=== PATIENT | female | born 1990 | race Caucasian/White ===

== ENCOUNTER 2016-12-26 11:44 | Outpatient (CLI) | payer OTHER ==
[~2016-12-26 11:44] MED LIST: MIRENA; NITR-58 PO
--- NOTE | 2016-12-26 13:00 | RADRPT ---
PROCEDURE: Limited OB ultrasound for SAGAR. CLINICAL INDICATION: Decreased movement TECHNIQUE: Sonographic evaluation to assess the amniotic fluid volume was performed. Transabdomin al imaging of the gravid uterus was performed. COMPARISON: None available FINDINGS: Single live intrauterine with cardiac activity is identified. The heart rate i s 137 bpm. Maximum vertical pocket of amniotic fluid equals 4.8 cm, within normal limits. The plac enta is posterior, grade 1. The lie is cephalic. IMPRESSION: 1. Maximum vertical pocket of amniotic fluid equals 4.8 cm, within normal limits . RPTAT: KK .Kavon Brown MD, MD Date Time Electronically viewed and signed by .Kavon Brown MD, on 12/26/2016 12:59 .B/
[2016-12-26] MEDS ORDERED: AMPICILLIN 2 GM/NS (PMX) 0 ML ONE (13:17)
[2016-12-26] MEDS ORDERED: PRENAT PO (13:18)
[2016-12-26] MEDS ORDERED: FER325 PO (13:18)
--- NOTE | 2016-12-26 13:47 | PN ---
Triage Information Date/Time Reason for visit: DFM Weeks of Gestation 21+ /Para 1/0 Diabetes: none Hypertention: none Objective Heart Rate: 140's Contractions: None Assessment/Plan patient feels the baby moves, Discharged with precautions OZZY STAHL M.D. Dec 26, 2016 13:47
--- NOTE | 2016-12-26 13:57 | TRIAGE ---
OB Triage Datetime Report Generated by CPN: 12/26/2016 13:57 Datetime: 12/26/2016 13:00 Stage of : OB Triage Maternal Assessment Level of Consciousness: Fully Conscious Labor Evaluation Frequency: NONE Monitor Mode: External Resting Tone [place]: Relaxed Heart Rate Monitor Mode: Doppler (Annotations: FHT'S DOPPLED IN THE 140'S.) Pain Assessment Pain Scale: 0 Pain Goal: 3 Vaginal Exam Membrane Status: Intact Vaginal Bleeding: None Datetime: 12/26/2016 12:45 Assessment Type: Triage Maternal Assessment Level of Consciousness: Fully Conscious DTR's/Clonus: DTRs 2+; No Clonus Headache: Denies Blurred Vision: No Respiratory Effort: Unlabored; Regular Rhythm; Equal Expansion Breath Sounds, Left: Clear and Equal Breath Sounds, Right: Clear and Equal Nausea/Vomiting: Denies RUQ Epigastric Pain: Denies Lower Extremities Edema: None Degree: None Upper Extremities Edema: None Degree: None Facial Edema: None Fall Risk Assessment History of Falling: (0) No Secondary Diagnosis: (0) No Ambulatory Aid: (0) Bedrest/Nurse Assist IV Therapy: (0) No Gait: (0) Normal/Bedrest/Immobile Mental Status: (0) Oriented to Own Ability Fall Score: 0 Fall Risk Score Definition: No Risk: No action required Datetime: 12/26/2016 12:43 Time of Arrival: 12/26/2016 11:35 EGA: 21.5 Arrived By: Ambulatory Arrived From: Home Chief Complaint: pt here c/o DFM Movement: Absent Contractions: Denies/Absent Rupture of Membranes: Denies Vaginal Bleeding: None Vaginal Discharge: Denies Recent Sexual Intercouse: Denies Abdominal Trauma: Not Applicable Patient Complaints: None Time Provider Notified: 12/26/2016 12:00 Provider Notified: CLIF RODRIGUEZ Initial Plan: AFU/DOPPLER FHT'S Datetime: 12/26/2016 11:52 Heart Rate Monitor Mode: Doppler Comments: fht's doppled in the 140's.
== END 2016-12-26 14:04 | disposition home or self-care (01) ==
LOC: L-D 11:44 → OBT 11:44
PROVIDERS: ATTEND Specialist
DX: O36.8120 Decreased fetal movements, second trimester, not applicable or unspecified (principal); Z3A.21 21 weeks gestation of pregnancy
CPT/HCPCS: 76815; Z7500; G0463; J0290

== ENCOUNTER 2017-03-13 11:01 | Inpatient (IN) | payer OTHER ==
[~2017-03-13] VITALS: Ht 154.9 cm; Wt 107.2 kg
[~2017-03-13 11:01] MED LIST changes: +FER325 PO; -MIRENA; -NITR-58 PO; +PRENAT PO
[2017-03-13 11:43] VITALS: BP 110/61; PULSE 80; RESP 20; Ht 154.9 cm; Wt 107.2 kg
[2017-03-13 12:51] LABS: ADD UMIC NO; UR ASCORBIC ACID NEGATIVE (NEGATIVE); UR BILIRUBIN (Dip) NEGATIVE (NEGATIVE); UR BLOOD (Dip) NEGATIVE (NEGATIVE); UR CLARITY SLIGHTLY CLOUDY (CLEAR); UR COLOR YELLOW (YELLOW); UR GLUCOSE (Dip) NEGATIVE (NEGATIVE); UR KETONES (Dip) TRACE mg/dL (NEGATIVE); UR LEUKOCYTE ESTERASE (Dip) NEGATIVE Leu/ul (NEGATIVE); UR MUCUS MANY /HPF (NONE SEEN); UR NITRITE (Dip) NEGATIVE (NEGATIVE); UR RBC 1 /HPF (0-5); UR SQUAMOUS EPITHELIAL CELL FEW /HPF (FEW); UR TOTAL PROTEIN (Dip) NEGATIVE (NEGATIVE); UR UROBILINOGEN (Dip) NEGATIVE (NEGATIVE)
--- NOTE | 2017-03-13 13:24 | RADRPT ---
PROCEDURE: OB ultrasound for biophysical profile CLINICAL INDICATION: Decreased movement TECHNIQUE: Multiple sonographic images of the pelvis were obtained. Transabdominal views of the g ravid uterus are available for review. The images were reviewed on a PACS workstation. COMPARISON: None FINDINGS: breathing movement = 2/2 tone = 2/2 motion = 2/2 SAGAR = 0/2 SAGAR = 4.1 cm Single live intrauterine with cardiac activity of 139 bpm. position is cephal ic. The placenta is fundal. IMPRESSION: 1. Single live intrauterine gestation. 2. Biophysical profile = 6/8, 0/2 for SAGAR. 3. SAGAR = 4.1 cm. RPTAT: HH .Hannah Abbott MD, Date Time Electronically viewed and signed by .Hannah Abbott MD, on 03/13/2017 13:23 .G/
--- NOTE | 2017-03-13 13:26 | RADRPT ---
PROCEDURE: US OB. CLINICAL INDICATION: Size and dates TECHNIQUE: Multiple sonographic images of the pelvis were obtained. Transabdominal imaging only w as performed. The images were reviewed on a PACS workstation. COMPARISON: No prior studies are available for comparison. FINDINGS: There is a single live intrauterine gestation. Cardiac activity is present with 168 beats per minut e. position is cephalic. Measurements were made in order to determine age. The results are as follows: BPD = 7.99 cm HC = 30.68 cm AC = 28.64 cm FL = 5.91 cm. Estimated gestational age of approximately 32 weeks 3 days. The estimated date of delivery is 05/05/2017. The EFW = 1925 g, 6.7 %ile. The placenta is fundal. There is no evidence for an abruption or placenta previa. There are no adnexal masses. IMPRESSION: 1. Single live intrauterine gestation of approximately 32 weeks 3 days, by ultrasound criteria. 2. The estimated date of delivery is 05/05/2017. 3. The estimated weight is 1925 g, 6.7 %ile. RPTAT: HH .Hannah Abbott MD, Date Time Electronically viewed and signed by .Hannah Abbott MD, on 03/13/2017 13:25 .G/
[2017-03-13] MEDS ORDERED: AZITHROMYCIN 500MG/NS (PMX) 250 ML IVPB SCH (13:30)
[2017-03-13] MEDS ORDERED: MAGNESIUM SULFATE 4 GM/100 ML 100 ML IV ONE (13:30)
[2017-03-13] MEDS ORDERED: AZITHROMYCIN 500MG/NS (PMX) 250 ML IVPB ONE ×2 (13:30→15:00)
[2017-03-13] MEDS ORDERED: ACETAMINOPHEN 325 MG TAB PO PRN (13:30)
[2017-03-13] MEDS ORDERED: AL HYDROX/MG HYDROX/SIMETH 30 ML CUP PO PRN (13:30)
[2017-03-13] MEDS: BETAMET NA PHOS/AC(6 MG/ML) 5ML INJ IM SCH (14:14)
[2017-03-13] MEDS: LACTATED RINGER'S 1,000 ML IV SCH (14:15)
--- NOTE | 2017-03-13 14:45 | PREOPHP ---
DATE OF ADMISSION: 03/13/2017 CHIEF COMPLAINT: Passage of large amount of water per vagina. HISTORY OF PRESENT ILLNESS: This is a 26-year-old primigravida whose EDC is 04/24/2017, who this mo rning noticed passage of a large amount of water per vagina. On admission, she was found to be chris sly ruptured and SAGAR was only 4.1 cm. She has had a completely uncomplicated course so far . PAST MEDICAL HISTORY: The patient denies any medical problems including cardiovascular disease, hyp ertension, diabetes, renal disease, liver disease, or neurological problems. She had been overweigh t the better part of her life. ALLERGIES: SHE IS ALLERGIC TO PENICILLIN. MEDICATIONS: She has been taking only vitamins on a regular basis. FAMILY HISTORY: Noncontributory. REVIEW OF SYSTEMS: A 12-point review of systems is noncontributory. PHYSICAL EXAMINATION: GENERAL: Well-developed, slightly obese, in no distress. VITAL SIGNS: Showed temperature to be 98, blood pressure 120/70, respirations 16 per minute, the pu lse is 72 per minute, regular. HEENT: Within normal limits. Pupils are PERRLA. NECK: Supple. Thyroid is nonpalpable. There is no lymphadenopathy. BREASTS: Show no masses or lumps. LUNGS: Clear to percussion and auscultation. HEART: Normal sinus rhythm without a murmur. ABDOMEN: Soft, obese. Uterus enlarged up to 32 cm above the pubic bone, single baby, longitudinal lie, cephalic presentation. heart rate is category 1. PELVIC: Exam was not done; however, had been done with the speculum earlier by the admitting nurse and there was pooling and Nitrazine positive fluid. LOWER EXTREMITIES: Within normal limits. NEUROLOGIC: Normal. IMPRESSION: 34 weeks gestation. Premature rupture of membranes. Consultation will be obtained wit sha Frausto, perinatologist, and with neonatology also. PLAN: The patient is to be admitted to antepartum. Dictated By: AISSATOU ORTIZ/SARA Conf#: [id number] DID#: [id number]
[2017-03-13] MEDS: MAGNESIUM SULFATE 20 GM/500 ML 500 ML IV SCH (15:04)
--- NOTE | 2017-03-13 15:35 | TRIAGE ---
OB Triage Datetime Report Generated by CPN: 03/13/2017 15:35 Datetime: 03/13/2017 15:13 Assessment Type: Admission Assessment Vaginal Bleeding: None Maternal Assessment Level of Consciousness: Fully Conscious DTR's/Clonus: DTRs 2+; No Clonus Headache: Denies Blurred Vision: No Respiratory Effort: Unlabored; Regular Rhythm; Equal Expansion Breath Sounds, Left: Clear and Equal Breath Sounds, Right: Clear and Equal Nausea/Vomiting: Denies RUQ Epigastric Pain: Denies Facial Edema: None Fall Risk Assessment History of Falling: (0) No Secondary Diagnosis: (0) No Ambulatory Aid: (0) Bedrest/Nurse Assist Gait: (0) Normal/Bedrest/Immobile Mental Status: (0) Oriented to Own Ability Datetime: 03/13/2017 15:07 Breath Sounds, Left: Clear and Equal Breath Sounds, Right: Clear and Equal Datetime: 03/13/2017 12:48 Time of Arrival: 03/13/2017 12:00 EGA: 34.0 Arrived By: Ambulatory Arrived From: Home Vaginal Exam Membrane Status: Ruptured Datetime: 03/13/2017 11:52 Labor Evaluation Frequency: 2 noted, 8 min apart Monitor Mode: External Duration (sec)2399: 60 Quality: Mild Resting Tone [place]: Relaxed Heart Rate FHR Baseline Rate: 140 Monitor Mode: External US FHR Baseline Changes: No Baseline Change Variability: Moderate 6-25 bpm Accelerations: 15X15 Decelerations: None Category: Category I Datetime: 03/13/2017 11:41 Pain Assessment Pain Scale: 3 Pain Type: Cramping Pain Goal: 0 Datetime: 03/13/2017 11:36 Time of Arrival: 03/13/2017 11:36 EGA: 32.5 Arrived By: Ambulatory Arrived From: Home Chief Complaint: leaking and no fm since 4 am Movement: Absent Contractions: Occasional Rupture of Membranes: Unsure Vaginal Bleeding: None Vaginal Discharge: Present Recent Sexual Intercouse: Denies Abdominal Trauma: Not Applicable Patient Complaints: Cramping; Other Time Provider Notified: 03/13/2017 12:05 Provider Notified: [id number] Datetime: 12/26/2016 12:45 Fall Score: 0 Fall Risk Score Definition: No Risk: No action required Datetime: 12/26/2016 12:43 EGA: 21.5
[2017-03-13 15:56] LABS: BASOPHILS % 0.4 % (0.0-2.0); EOSINOPHILS # 0.1 10^3/ul (0.0-0.5); EOSINOPHILS % 0.9 % (0.0-7.0); HEMATOCRIT 38.5 % (37.0-47.0); LYMPHOCYTES % 19.3 % (15.0-51.0); MEAN CORPUSCULAR HEMOGLOBIN 29.7 pg (29.0-33.0); MEAN CORPUSCULAR HGB CONC 33.8 g/dl (32.0-37.0); MEAN CORPUSCULAR VOLUME 87.9 fl (82.0-101.0); MEAN PLATELET VOLUME 10.6 fl (7.4-10.4); MONOCYTE # 0.4 10^3/ul (0.3-0.9); MONOCYTES % 4.2 % (0.0-11.0); NEUTROPHIL # 7.9 10^3/ul (1.6-7.5); NEUTROPHILS % 74.8 % (39.0-77.0); PLATELET COUNT 332 10^3/UL (140-415); RED BLOOD COUNT 4.38 10^6/ul (4.20-5.40); RED CELL DISTRIBUTION WIDTH 14.4 % (11.5-14.5); WHITE BLOOD COUNT 10.6 10^3/ul (4.8-10.8)
[2017-03-13 16:19] LABS: ALBUMIN 3.5 g/dl (3.3-4.9); ALBUMIN/GLOBULIN RATIO 1.06; BILIRUBIN,INDIRECT 0.2 mg/dl (0-1.1); BILIRUBIN,TOTAL 0.2 mg/dl (0.2-1.3); CALCIUM 8.9 mg/dl (8.4-10.2); CREATININE 0.55 mg/dl (0.44-1.00); POTASSIUM 3.9 mmol/L (3.5-5.1); TOTAL PROTEIN 6.8 g/dl (6.1-8.1)
[2017-03-14] MEDS: LACTATED RINGER'S 1,000 ML IV SCH ×3 (01:00→22:00)
[2017-03-14] MEDS: MAGNESIUM SULFATE 20 GM/500 ML 500 ML IV SCH ×3 (01:03→22:38)
--- NOTE | 2017-03-14 08:02 | PN ---
Date/Time of Note Date/Time of Note DATE: 03/14/17 TIME: 08:00 OB Subjective Subjective Subjective Doing well,stable.Baby reported active. Denies contractions.Still actively leaking fluid. OB Objective Objective Objective Abdomen soft. Second dose of Betamethasone today. Consultation with Stocking Inspector Daily cbc HEENT: WNL Heart: Rhythm Normal Lungs: Clear Abdomen: WNL Extremities: Normal AISSATOU RODRIGUEZ MD Mar 14, 2017 08:02
[2017-03-14 08:22] LABS: BASOPHILS % 0.1 % (0.0-2.0); EOSINOPHILS % 0.1 % (0.0-7.0); HEMATOCRIT 35.5 % (37.0-47.0); HEMOGLOBIN 11.9 g/dl (12.0-16.0); LYMPHOCYTES # 1.6 10^3/ul (0.8-2.9); MEAN CORPUSCULAR HEMOGLOBIN 29.8 pg (29.0-33.0); MEAN CORPUSCULAR HGB CONC 33.5 g/dl (32.0-37.0); MEAN CORPUSCULAR VOLUME 88.8 fl (82.0-101.0); MONOCYTE # 0.6 10^3/ul (0.3-0.9); MONOCYTES % 4.5 % (0.0-11.0); NEUTROPHIL # 10.7 10^3/ul (1.6-7.5); NEUTROPHILS % 82.7 % (39.0-77.0); PLATELET COUNT 345 10^3/UL (140-415)
[2017-03-14] MEDS: PRENATAL VITAMIN PO SCH (09:18)
[2017-03-14] MEDS: DOCUSATE SODIUM 100 MG CAP PO PRN (09:18)
[2017-03-14] MEDS: FERROUS SULFATE (EC) 325 MG TAB PO SCH (09:19)
--- NOTE | 2017-03-14 10:48 | CONS ---
Date/Time of Note Date/Time of Note DATE: 03/14/17 TIME: 10:44 Consultation Date/Type/Reason Admit Date/Time Mar 13, 2017 at 15:12 Date of Consultation: Mar 14, 2017 Type of Consultation: Neonatology consultation Reason for Consultation Rupture of membranes at 34 weeks, PPROM Referring Provider: AISSATOU RODRIGUEZ MD Hx of Present Illness I was asked to talk with his mother who is 26 year old 1 para 0 with a 34 week and history of rupture of membranes on 03/13 at 0400 hours. Mother's labs show blood type was O+, antibody negative, RPR nonreactive, rubella immune, HBsAg negative, HIV unknown, GBS done on 03/13. ultrasound showed an estimated weight of 1975 g with an estimated gestation of 32.3 weeks. Mother received 1 dose of betamethasone on 03/13 at 1408 hrs. and was also started on magnesium sulfate at 1500 hrs. and antibiotics at 1600 hrs. She remains clinically stable at the present time. I discussed with the mother with the fetus being about 34 weeks with risk for respiratory distress including respiratory distress syndrome. Discussed about treatment with the oxygen administration if needed as well as a high flow nasal cannula or CPAP if infant has respiratory distress. Discussed about possibility of administration of Curosurf if infant's oxygen requirement is greater than 40%. Discussed about risk of apnea including treatment with caffeine if apnea is moderate to severe. Also discussed about initial IV fluids and TPN followed by feedings to be started with gavage. Also discussed about gradual advancement of feedings and infant to be monitored for clinical signs of gastroesophageal reflux and NEC. Discussed about TPN and Intralipid administration for several days depending on infant's feeding intolerance and inability to digest feedings and advance the feedings. Discussed about the benefits of breastmilk and encourage mother to pump breastmilk. Also discussed about the risk of infection and being premature at higher risk than term babies and antibiotics to be started if clinically indicated. Discussed about obtaining lab tests to rule out infection. Also discussed about high incidence of hyperbilirubinemia and treatment with phototherapy. Discussed about length of stay of approximately 2 weeks and good prognosis. All mother's questions were answered and discussion was concluded after mother had no further questions. Social History Smoking Status: Never smoker Exam/Review of Systems Vital Signs Vitals Vital Signs Date Time Temp Pulse Resp B/P Pulse Ox O2 Delivery O2 Flow Rate FiO2 03/13/17 11:43 98.0 80 20 110/61 Room Air Intake and Output 03/13/17 03/13/17 03/14/17 15:00 23:00 07:00 Intake Total 2045 ml 1400 ml Output Total 2000 ml 850 ml Balance 45 ml 550 ml Results Result Diagram: 03/14/17 0536 03/13/17 1500 Results 24 hrs Laboratory Tests Test 03/13/17 12:10 03/13/17 12:20 03/13/17 15:00 03/13/17 18:03 Membranes Rupture POSITIVE H Urine Color YELLOW Urine Clarity SLIGHTLY CLOUDY A Urine pH 6.0 Urine Specific [place] 1.020 Urine Ketones TRACE A Urine Nitrite NEGATIVE Urine Bilirubin NEGATIVE Urine Urobilinogen NEGATIVE Urine Leukocyte Esterase NEGATIVE Urine Microscopic RBC 1 Urine Microscopic WBC 8 H Urine Squamous Epithelial Cells FEW Urine Mucus MANY A Urine Hemoglobin NEGATIVE Urine Glucose NEGATIVE Urine Total Protein NEGATIVE White Blood Count 10.6 Red Blood Count 4.38 Hemoglobin 13.0 Hematocrit 38.5 Mean Corpuscular Volume 87.9 Mean Corpuscular Hemoglobin 29.7 Mean Corpuscular Hemoglobin Concent 33.8 Red Cell Distribution Width 14.4 Platelet Count 332 Mean Platelet Volume 10.6 #H Neutrophils % 74.8 Lymphocytes % 19.3 Monocytes % 4.2 Eosinophils % 0.9 Basophils % 0.4 Nucleated Red Blood Cells % 0.0 Neutrophils # 7.9 H Lymphocytes # 2.0 Monocytes # 0.4 Eosinophils # 0.1 Basophils # 0.0 Nucleated Red Blood Cells # 0.0 Sodium Level 143 Potassium Level 3.9 Chloride Level 108 Carbon Dioxide Level 22 Anion Gap 17 H Blood Urea Nitrogen 6 L Creatinine 0.55 Glucose Level 100 Calcium Level 8.9 Total Bilirubin 0.2 Direct Bilirubin 0.00 Indirect Bilirubin 0.2 Aspartate Amino Transf (AST/SGOT) 14 L Alanine Aminotransferase (ALT/SGPT) 20 Alkaline Phosphatase 181 H Total Protein 6.8 Albumin 3.5 Globulin 3.30 H Albumin/Globulin Ratio 1.06 Magnesium Level 3.7 H Test 03/14/17 00:11 03/14/17 05:36 03/14/17 05:37 Magnesium Level 4.4 H 4.7 H White Blood Count 13.0 #H Red Blood Count 4.00 L Hemoglobin 11.9 L Hematocrit 35.5 L Mean Corpuscular Volume 88.8 Mean Corpuscular Hemoglobin 29.8 Mean Corpuscular Hemoglobin Concent 33.5 Red Cell Distribution Width 14.0 Platelet Count 345 Mean Platelet Volume 11.0 H Neutrophils % 82.7 H Lymphocytes % 12.0 L Monocytes % 4.5 Eosinophils % 0.1 Basophils % 0.1 Nucleated Red Blood Cells % 0.0 Neutrophils # 10.7 H Lymphocytes # 1.6 Monocytes # 0.6 Eosinophils # 0.0 Basophils # 0.0 Nucleated Red Blood Cells # 0.0 Medications Medications Current Medications Lactated Ringer's 1,000 ml @ 125 mls/hr Q8H IV Last administered on 01:00; Admin Dose 125 MLS/HR; Start 03/13/17 at 13:14 Magnesium Sulfate (Magnesium Sulfate 20 Gm/500 ml) 500 ml @ 50 mls/hr Q10H IV Last administered on 03/14/17 01:03; Admin Dose 50 MLS/HR; Start 03/13/17 at 13:14 Betamethasone Acet/Betameth SodPhos ([place] Soluspan) 12 mg Q24H IM Last administered on 03/13/17 14:14; Admin Dose 12 MG; Start 03/13/17 at 13:30; Stop 03/14/17 at 13:31 Prenat Multivit/ [place]/Iron/Folic Ac () 1 tab DAILY PO Last administered on 03/14/17 09:18; Admin Dose 1 TAB; Start 03/14/17 at 09:00 Ferrous Sulfate (Ferrous Sulfate (Ec)) 325 mg DAILY PO Last administered on 09:19; Admin Dose 325 MG; Start 03/14/17 at 09:00 Docusate Sodium (Colace) 100 mg DAILY PRN PO CONSTIPATION Last administered on 03/14/17 09:18; Admin Dose 100 MG; Start 03/13/17 at 13:30 Acetaminophen (Tylenol Tab) 650 mg Q4H PRN PO PAIN AND OR ELEVATED TEMP; Start 03/13/17 at 13:30 Al Hydrox/Mg Hydrox/ Simethicone 30 ml 30 ml Q6H PRN PO GASTROINTESTINAL UPSET ; Start 03/13/17 at 13:30 Azithromycin/ Sodium Chloride (Zithromax/NS) 250 ml @ 250 mls/hr Q24H IVPB ; Start 03/14/17 at 16:00 JESSICA WHITE MD Mar 14, 2017 10:48
[2017-03-14] MEDS: BETAMET NA PHOS/AC(6 MG/ML) 5ML INJ IM SCH (14:12)
[2017-03-14] MEDS ORDERED: AZITHROMYCIN 250 MG in NS 250 ML IVPB SCH (16:00)
[2017-03-15] MEDS: LACTATED RINGER'S 1,000 ML IV SCH ×4 (03:26→21:14)
[2017-03-15] MEDS: MAGNESIUM SULFATE 20 GM/500 ML 500 ML IV SCH ×2 (05:14→08:30)
[2017-03-15] MEDS: FERROUS SULFATE (EC) 325 MG TAB PO SCH (08:25)
[2017-03-15] MEDS: PRENATAL VITAMIN PO SCH (08:25)
[2017-03-15] MEDS: DOCUSATE SODIUM 100 MG CAP PO PRN (08:26)
--- NOTE | 2017-03-15 09:57 | PN ---
Date/Time of Note Date/Time of Note DATE: 03/15/17 TIME: 09:54 OB Subjective Subjective Subjective Doing well,in good spirits. Denies contractions,continues to leak clear fluid. Baby reported active. OB Objective Objective Objective Afebrile WBC 13, Second dose of Beta given. Will stop magnesium this evening. Situation and plan of possible delivery discussed with the patient in detail. HEENT: WNL Heart: Rhythm Normal Lungs: Clear Abdomen: WNL Extremities: Normal AISSATOU RODRIGUEZ MD Mar 15, 2017 09:57
[2017-03-15] MEDS ORDERED: VANCOMYCIN 1.25 GM in SOD CHLORIDE 0.9% 250 ML IVPB SCH (11:30)
[2017-03-15] MEDS ORDERED: VANCOMYCIN 1 GM in SOD CHLORIDE 0.9% 250 ML IVPB SCH (13:30)
[2017-03-15] MEDS: AZITHROMYCIN 250 MG TAB PO SCH (14:49)
[2017-03-15] MEDS: VANCOMYCIN 1 GM in NS 250 ML IVPB SCH ×2 (14:50→21:45)
--- NOTE | 2017-03-16 04:15 | CONS ---
DATE OF ADMISSION: 03/13/2017 DATE OF CONSULTATION: 03/15/2017 HISTORY OF PRESENT ILLNESS: The patient is a 26-year-old G1, currently at 33 weeks and 5 days, who presented with premature rupture of membranes on the , she was given betamethasone. She is currently on magnesium sulfate. SHE IS ALLERGIC TO PENICILLIN; therefore, clindamycin was start ed for latency extension beginning on the . PAST MEDICAL HISTORY: Her history is completely negative. PHYSICAL EXAMINATION: VITAL SIGNS: She is afebrile. ABDOMEN: There is no evidence of fundal tenderness. heart tones reassuring for gestational a ge and she has no contractions. Her urine cultures show E. coli, which is sensitive to vancomycin. IMPRESSION: Intrauterine at 33 weeks and 4 days with premature rupture of membran es, status post betamethasone x2 on magnesium sulfate, receiving clindamycin. She has a UTI and the sensitivity for the organism does not include clindamycin, but E. coli is sensitive to vancomycin. There is no evidence of chorioamnionitis. RECOMMENDATIONS: Discontinue the clindamycin, start vancomycin, continue with the betamethasone unt il 24 hours after the second dose of betamethasone. NICU consult. Delivery is recommended at 34 we eks or earlier if there is any evidence of chorioamnionitis, labor, or nonreassuring heart ton es. Dictated By: TYLER MICHAEL/SARA Conf#: [id number] DID#: [id number]
[2017-03-16] MEDS: VANCOMYCIN 1 GM in NS 250 ML IVPB SCH ×3 (04:50→21:19)
[2017-03-16] MEDS: LACTATED RINGER'S 1,000 ML IV SCH ×2 (05:14→12:47)
--- NOTE | 2017-03-16 08:14 | PN ---
Date/Time of Note Date/Time of Note DATE: 03/16/17 TIME: 08:12 OB Subjective Subjective Subjective Doing well.In good spirits. No contractions.Baby active. No signs of infection. OB Objective Objective Objective Afebrile.Beta complete. UTI on Vancomycin 1 gr daily. HEENT: WNL Heart: Rhythm Normal Lungs: Clear Abdomen: WNL Extremities: Normal AISSATOU RODRIGUEZ MD Mar 16, 2017 08:14
[2017-03-16] MEDS: DOCUSATE SODIUM 100 MG CAP PO PRN (08:26)
[2017-03-16] MEDS: AZITHROMYCIN 250 MG TAB PO SCH (08:26)
[2017-03-16] MEDS: PRENATAL VITAMIN PO SCH (08:26)
[2017-03-16] MEDS: FERROUS SULFATE (EC) 325 MG TAB PO SCH (08:26)
[2017-03-16] MEDS: VANCOMYCIN 1.5 GM in SOD CHLORIDE 0.9% 250 ML IVPB SCH (21:34)
[2017-03-17] MEDS: LACTATED RINGER'S 1,000 ML IV SCH ×4 (03:05→23:57)
[2017-03-17] MEDS: VANCOMYCIN 1.5 GM in SOD CHLORIDE 0.9% 250 ML IVPB SCH ×3 (05:11→20:37)
--- NOTE | 2017-03-17 06:32 | PN ---
Date/Time of Note Date/Time of Note DATE: 03/17/17 TIME: 06:25 OB Subjective Subjective Subjective uc by patient q8min diff to monitor due to body habitus OB Objective Objective Objective afebrile uterus non tender last wbc 28499 on 03/14/17 OB Assessment/Plan Other Assessment: IUP 34w4d by EDC04/24/17 s/p x2 BMZ mg so4 variable deceleration multiple occasions Plan: Induction Induction Method: per Pitocin Protocol Other plan: repeat CBC this am regardless result will deliver ANJALI MENEZES MD Mar 17, 2017 06:32
[2017-03-17 08:46] LABS: BASOPHIL # 0.1 10^3/ul (0.0-0.1); BASOPHILS % 0.4 % (0.0-2.0); EOSINOPHILS # 0.1 10^3/ul (0.0-0.5); EOSINOPHILS % 0.6 % (0.0-7.0); HEMATOCRIT 35.9 % (37.0-47.0); LYMPHOCYTES # 3.3 10^3/ul (0.8-2.9); LYMPHOCYTES % 23.1 % (15.0-51.0); MEAN CORPUSCULAR HEMOGLOBIN 29.8 pg (29.0-33.0); MEAN CORPUSCULAR HGB CONC 33.4 g/dl (32.0-37.0); MEAN CORPUSCULAR VOLUME 89.1 fl (82.0-101.0); MEAN PLATELET VOLUME 10.4 fl (7.4-10.4); MONOCYTE # 0.9 10^3/ul (0.3-0.9); MONOCYTES % 6.5 % (0.0-11.0); NEUTROPHIL # 9.8 10^3/ul (1.6-7.5); NEUTROPHILS % 68.6 % (39.0-77.0); PLATELET COUNT 314 10^3/UL (140-415); RED BLOOD COUNT 4.03 10^6/ul (4.20-5.40); RED CELL DISTRIBUTION WIDTH 14.5 % (11.5-14.5); WHITE BLOOD COUNT 14.2 10^3/ul (4.8-10.8)
[2017-03-17] MEDS ORDERED: OXYTOCIN 30 UNITS/LR 500 ML IV PRN (10:00)
[2017-03-17] MEDS ORDERED: HYDROCODONE/APAP (5/325) TAB PO PRN (10:00)
[2017-03-17] MEDS ORDERED: BUTORPHANOL 2 MG INJ IV PRN (10:00)
[2017-03-17] MEDS ORDERED: MISOPROSTOL 200 MCG TAB PR PRN (10:00)
[2017-03-17] MEDS ORDERED: CARBOPROST 250 MCG INJ IM PRN (10:00)
[2017-03-17] MEDS ORDERED: METHYLERGONOVINE 0.2 MG INJ IM PRN (10:00)
[2017-03-17] MEDS ORDERED: LIDOCAINE 1% (MPF) 30 ML INJ INJ PRN (10:00)
[2017-03-17] MEDS ORDERED: LACTATED RINGER'S 1,000 ML IV PRN (10:00)
[2017-03-17] MEDS ORDERED: OXYTOCIN 30 UNITS/LR 500 ML IV SCH ×2 (10:00)
[2017-03-17] MEDS ORDERED: IBUPROFEN 600 MG TAB PO PRN (10:00)
[2017-03-17] MEDS: PRENATAL VITAMIN PO SCH (10:01)
[2017-03-17] MEDS: FERROUS SULFATE (EC) 325 MG TAB PO SCH (10:01)
[2017-03-17] MEDS: AZITHROMYCIN 250 MG TAB PO SCH (10:02)
[2017-03-17] MEDS: OXYTOCIN 30 UNITS/LR 500 ML IV SCH (10:39)
[2017-03-17 14:32] LABS: INR 0.99; PROTIME 13.1 Sec (12.2-14.2)
[2017-03-17 14:33] LABS: PARTIAL THROMBOPLASTIN TIME 30.5 Sec (25.0-35.0)
--- NOTE | 2017-03-17 22:56 | RADRPT ---
PROCEDURE: Limited OB ultrasound. CLINICAL INDICATION: . TECHNIQUE: Sonographic evaluation to assess the amniotic fluid volume was performed. Transabdomin al imaging of the gravid uterus was performed. COMPARISON: None. FINDINGS: Single live intrauterine is identified. heart rate is 137 beats per minute. Placenta is fundal, grade II appearance. There is no evidence of placenta previa or abruption. Prese ntation is cephalic. IMPRESSION: Cephalic presentation. RPTAT: HIKT .Estuardo Mendieta MD, Date Time Electronically viewed and signed by .Estuardo Mendieta MD, on 03/17/2017 22:56 .T/
[2017-03-18] MEDS ORDERED: DIPHENHYDRAMINE 50 MG INJ IV PRN
[2017-03-18] MEDS ORDERED: ONDANSETRON 4 MG INJ IV PRN
[2017-03-18] MEDS ORDERED: NALOXONE (0.4 MG/ML) INJ IV PRN
[2017-03-18] MEDS: LACTATED RINGER'S 1,000 ML IV SCH ×2 (04:13→20:56)
[2017-03-18] MEDS: VANCOMYCIN 1.5 GM in SOD CHLORIDE 0.9% 250 ML IVPB SCH ×3 (05:04→20:55)
[2017-03-18] MEDS: PRENATAL VITAMIN PO SCH (09:00)
[2017-03-18] MEDS: FERROUS SULFATE (EC) 325 MG TAB PO SCH (09:00)
--- NOTE | 2017-03-18 09:42 | CONS ---
Date/Time of Note Date/Time of Note DATE: 03/18/17 TIME: 09:39 Assessment/Plan Assessment/Plan Chief Complaint/Hosp Course 26 yo female currently in labor with SOB - Would perform XR to exclude pulmonary edema. Benefit of this outweighs risk of radiation - Can give albuterol via nebulizer - If CXR not suggestive of pulmonary edema, reasonable to pursue CT-A to exclude PE - Patient currently stable from respiratory perspective, trivial hypoxia, nonlabored Problems: Consultation Date/Type/Reason Admit Date/Time Mar 13, 2017 at 15:12 Hx of Present Illness 26 yo female in labor who complians of SOB Patient woke up this morning feeling subjective dyspnea. No cough. No phlegm. No h/o lung disease. Never felt like this before. Has received IVF. No leg swelling or pain. Social History Smoking Status: Never smoker Exam/Review of Systems Vital Signs Vitals Intake and Output 03/17/17 03/17/17 03/18/17 15:00 23:00 07:00 Intake Total 1362.62 ml 639.63 ml 2579 ml Output Total 1100 ml 550 ml 300 ml Balance 262.62 ml 89.63 ml 2279 ml Exam Appears comfortably on exam, no distress HR 120s, RR 14, O2 93-96% on RA Lung clear, nonlabored Heart sounds tachy, regular, no m/r/g No leg edema, swelling, or pain to palpation Constitutional: alert, oriented, well developed Psych: nl mood/affect, no complaints Head: atraumatic, normocephalic Eyes: EOMI, PERRL, nl conjunctiva, nl lids, nl sclera ENMT: nl external ears & nose, nl lips & teeth, nl nasal mucosa & septum Neck: non-tender, supple Respiratory: clear to auscultation, normal air movement Cardiovascular: nl pulses, regular rate and rhythm Gastrointestinal: nl liver, spleen, non-tender, soft Musculoskeletal: nl extremities to inspection, nl gait and stance Extremities: normal pulses Neurological: GAMING TABLE OPERATOR II-XII intact, nl mental status, nl speech, nl strength Skin: nl turgor, No rash or lesions Lymph: nl lymph nodes Results Result Diagram: 03/17/17 0756 Results 24 hrs Laboratory Tests Test 03/17/17 13:51 03/17/17 20:10 Prothrombin Time 13.1 Prothrombin Time Ratio 1.0 INR International Normalized Ratio 0.99 Activated Partial Thromboplast Time 30.5 Hepatitis B Surface Antigen NEGATIVE Vancomycin Level Trough 11.1 Medications Medications Current Medications Lactated Ringer's (Lr) 1,000 ml @ 125 mls/hr Q8H IV Last administered on 03/18 04:13; Admin Dose 125 MLS/HR; Start 03/13/17 at 13:14 Prenat Multivit/ [place]/Iron/Folic Ac () 1 tab DAILY PO Last administered on 03/17/17 10:01; Admin Dose 1 TAB; Start 03/14/17 at 09:00 Ferrous Sulfate (Ferrous Sulfate (Ec)) 325 mg DAILY PO Last administered on 10:01; Admin Dose 325 MG; Start 03/14/17 at 09:00 Docusate Sodium (Colace) 100 mg DAILY PRN PO CONSTIPATION Last administered on 03/16/17 08:26; Admin Dose 100 MG; Start 03/13/17 at 13:30 Acetaminophen (Tylenol Tab) 650 mg Q4H PRN PO PAIN AND OR ELEVATED TEMP; Start 03/13/17 at 13:30 Al Hydrox/Mg Hydrox/Simethicone (Mag-Al Plus) 30 ml Q6H PRN PO GASTROINTESTINAL UPSET; Start 03/13/17 at 13:30 Azithromycin 250 mg 250 mg DAILY PO Last administered on 03/17/17 10:02; Admin Dose 250 MG; Start 03/15/17 at 13:30 Vancomycin HCl 1.5 gm/Sodium Chloride 250 ml @ 83.333 mls/ hr Q8H IVPB Last administered on 03/18/17 05:04; Admin Dose 83.333 MLS/HR; Start 03/16/17 at 21:00 Oxytocin/Lactated Ringer's 500 ml @ 0 mls/hr TITRATE IV Last administered on 10:39; Admin Dose 1 MLS/HR; Start 03/17/17 at 10:00 Butorphanol Tartrate (Stadol) 2 mg Q2H PRN IV PAIN; Start 03/17/17 at 10:00 Lidocaine 30 ml 30 ml ONCE PRN INJ EPISIOTOMY/TEARING; Start 03/17/17 at 10:00 Oxytocin/Lactated Ringer's 500 ml @ 125 mls/hr ONCE IV ; Start 03/17/17 at 10: 00 Ibuprofen (Motrin) 600 mg ONCE PRN PO Mild Pain (Pain Score 1-3); Start at 10:00 Acetaminophen/ Hydrocodone Bitart 2 tab 2 tab ONCE PRN PO Moderate to Severe Pain (4-10); Start 03/17/17 at 10:00 Lactated Ringer's 1,000 ml @ 2,000 mls/hr Q30M PRN IV PRE-EPIDURAL BOLUS Last administered on 03/18/17t 01:32; Admin Dose 2,000 MLS/HR; Start 03/17/17 at 10 :00 Oxytocin/Lactated Ringer's 500 ml @ 0 mls/hr ONCE PRN IV For Hemorrhage Management; Start 03/17/17 at 10:00 Methylergonovine Maleate (Methergine) 0.2 mg ONCE PRN IM VAGINAL BLEEDING; Start 03/17/17 at 10:00 Carboprost Tromethamine (Hemabate) 250 mcg ONCE PRN IM VAGINAL BLEEDING; Start 03/17/17 at 10:00 Misoprostol (Cytotec) 1,000 mcg ONCE PRN MA VAGINAL BLEEDING; Start 03/17/17 at 10:00 Naloxone HCl (Narcan) 0.1 mg Q2M PRN IV FOR RESP RATE 8 OR LESS; Start at 00:00; Stop 03/18/17 at 23:59 Diphenhydramine HCl (Benadryl) 25 mg Q6H PRN IV ITCHING; Start 03/18/17 at 00: 00; Stop 03/18/17 at 23:59 Ondansetron HCl (Zofran Inj) 4 mg Q6H PRN IV NAUSEA AND/OR VOMITING; Start at 00:00; Stop 03/18/17 at 23:59 ROLO THORNE MD Mar 18, 2017 09:42
[2017-03-18] MEDS: AZITHROMYCIN 250 MG TAB PO SCH (09:46)
[2017-03-18] MEDS: OXYTOCIN 30 UNITS/LR 500 ML IV SCH (11:14)
[2017-03-18] MEDS: FENTAnyl 2MCG/ML-ROPIV 0.2% 100 ML BAG EPI SCH ×2 (15:12→22:10)
[2017-03-19] MEDS: LACTATED RINGER'S 1,000 ML IV SCH ×2 (00:09→03:27)
[2017-03-19] MEDS: FENTAnyl 2MCG/ML-ROPIV 0.2% 100 ML BAG EPI SCH (03:53)
--- NOTE | 2017-03-19 05:09 | LDN ---
Date/Time of Note Date/Time of Note DATE: 03/19/17 TIME: 05:03 Delivery Summary normal vaginal delivery Weeks of Gestation 34w6d Placenta Delivered: Spontaneously Meconium: none Laceration repair: vag 000ch gut multiple and bleeding Anesthesia type: Epidural Estimated blood loss: 200 Sponge & Needle done & correct: Yes All needle counts correct: Yes Any foreign bodies felt in the: No Problems: Delivery Information Sex Infant Sex: male Apgars 1 Minute: 9 5 Minute: 9 Suctioning Nose & mouth suctioned at ashly: Yes Delee suction performed: No Umbilical Cord Umbilical cord with: 3 Vessels Cord presentations: nuchal cord Nuchal cord present X: 1 Cord Blood was obtained: Yes Mother & Baby Disposition Disposition pprom on 03/13/17 0400 no odor placenta to path after culture from placenta both side Mom & Baby to Maternity; Good: Yes Mom transferred to: Other Baby to NICU: Yes () ANJALI MENEZES MD Mar 19, 2017 05:09
[2017-03-19] MEDS: VANCOMYCIN 1.5 GM in SOD CHLORIDE 0.9% 250 ML IVPB SCH (06:02)
[2017-03-19] MEDS: LACTATED RINGER'S 1,000 ML IV* SCH ×3 (06:04→22:04)
[2017-03-19] MEDS ORDERED: OXYCODONE/ASPIRIN (4.88/325) TAB ONE (06:17)
[2017-03-19] MEDS: OXYCODONE/ASPIRIN (4.88/325) TAB PO PRN ×2 (06:21→09:58)
[2017-03-19] MEDS ORDERED: OXYTOCIN 30 UNITS/LR 500 ML IV PRN (06:30)
[2017-03-19] MEDS ORDERED: METHYLERGONOVINE 0.2 MG INJ IM PRN (06:30)
[2017-03-19] MEDS ORDERED: LANOLIN 7 GM TUBE TOP PRN (06:30)
[2017-03-19] MEDS ORDERED: CARBOPROST 250 MCG INJ IM PRN (06:30)
[2017-03-19] MEDS ORDERED: ZOLPIDEM 5 MG TAB PO PRN (06:30)
[2017-03-19] MEDS: IBUPROFEN 600 MG TAB PO SCH ×4 (06:30→23:57)
[2017-03-19] MEDS ORDERED: MISOPROSTOL 200 MCG TAB PR PRN (06:30)
[2017-03-19] MEDS ORDERED: OXYCODONE/ASPIRIN (4.88/325) TAB PO PRN (06:30)
[2017-03-19] MEDS: OXYTOCIN 30 UNITS/LR 500 ML IV SCH ×2 (06:31→10:01)
[2017-03-19 08:46] VITALS: BP 119/55; PULSE 68; RESP 18
[2017-03-19 09:30] VITALS: BP 123/65; RESP 18
[2017-03-19] MEDS: BENZOCAINE 20% 56 ML SPRAY TOP PRN (09:57)
[2017-03-19] MEDS: WITCH HAZEL/GLYCERIN PAD PR PRN (09:57)
[2017-03-19] MEDS: SENNA/DOCUSATE NA (8.6MG/50MG) TAB PO SCH ×2 (09:59→22:02)
[2017-03-19 12:00] VITALS: BP 129/63; PULSE 80; RESP 18
[2017-03-19 15:30] VITALS: BP 119/74; PULSE 67; RESP 18
[2017-03-19 20:00] VITALS: BP 102/57; PULSE 73; RESP 22
[2017-03-20] VITALS: BP 115/56; PULSE 61; RESP 19
[2017-03-20 04:00] VITALS: BP 121/75; PULSE 67; RESP 20
[2017-03-20] MEDS: IBUPROFEN 600 MG TAB PO SCH ×3 (05:47→17:00)
[2017-03-20 08:15] VITALS: BP 135/75; PULSE 57; RESP 18
--- NOTE | 2017-03-20 08:42 | PN ---
Date/Time of Note Date/Time of Note DATE: 03/20/17 TIME: 08:41 OB Subjective Subjective Subjective Feeling well.In good spirits. Pumping for the baby in NICU OB Objective Objective Objective Afebrile.Lochia normal. Uterus firm. HEENT: WNL Heart: Rhythm Normal Lungs: Clear Abdomen: WNL Extremities: Normal AISSATOU RODRIGUEZ MD Mar 20, 2017 08:42
[2017-03-20] MEDS: SENNA/DOCUSATE NA (8.6MG/50MG) TAB PO SCH ×2 (09:54→22:16)
[2017-03-20 12:44] VITALS: BP 136/63; PULSE 67; RESP 19
[2017-03-20 14:12] LABS: BASOPHILS % 0.2 % (0.0-2.0); EOSINOPHILS # 0.2 10^3/ul (0.0-0.5); EOSINOPHILS % 1.8 % (0.0-7.0); HEMATOCRIT 33.8 % (37.0-47.0); HEMOGLOBIN 11.5 g/dl (12.0-16.0); LYMPHOCYTES # 3.4 10^3/ul (0.8-2.9); LYMPHOCYTES % 25.9 % (15.0-51.0); MEAN CORPUSCULAR HEMOGLOBIN 30.3 pg (29.0-33.0); MEAN CORPUSCULAR VOLUME 89.2 fl (82.0-101.0); MEAN PLATELET VOLUME 10.3 fl (7.4-10.4); MONOCYTES % 7.4 % (0.0-11.0); NEUTROPHIL # 8.4 10^3/ul (1.6-7.5); NEUTROPHILS % 64.2 % (39.0-77.0); PLATELET COUNT 291 10^3/UL (140-415); RED BLOOD COUNT 3.79 10^6/ul (4.20-5.40); RED CELL DISTRIBUTION WIDTH 14.6 % (11.5-14.5); WHITE BLOOD COUNT 13.1 10^3/ul (4.8-10.8)
[2017-03-20 15:33] VITALS: BP 101/55; PULSE 69; RESP 19
[2017-03-20 20:00] VITALS: BP 134/61; PULSE 63; RESP 20
[2017-03-21] MEDS: IBUPROFEN 600 MG TAB PO SCH ×3 (01:27→12:07)
[2017-03-21 04:00] VITALS: BP 101/54; PULSE 66; RESP 20
[2017-03-21 08:00] VITALS: BP 136/66; PULSE 63; RESP 17
--- NOTE | 2017-03-21 08:38 | PD.PPDC ---
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
[2017-03-21] MEDS: SENNA/DOCUSATE NA (8.6MG/50MG) TAB PO SCH (08:42)
[2017-03-21] MEDS: BENZOCAINE 20% 56 ML SPRAY TOP PRN (08:42)
[2017-03-21] MEDS: WITCH HAZEL/GLYCERIN PAD PR PRN (08:42)
--- NOTE | 2017-03-21 08:42 | DS ---
Date/Time of Note Date/Time of Note DATE: 03/21/17 TIME: 08:40 Obstetrical Discharge Record Final Diagnosis Final Diagnosis: not delivered Vaginal Delivery Obstetrical Delivery: Spontaneous Complications Complications: Low weight 1500-2500gms (NVD) Condition on Discharge Physical Assessment Last Vitals: Stable,afebrile Voiding: Yes Bowel Movement: Yes Breast: Soft, non-tender Fundus: Firm Calf Tenderness: No Patient Condition: Good AISSATOU RODRIGUEZ MD Mar 21, 2017 08:42
[2017-03-21] MEDS ORDERED: DIPHTH/TET/ACEL PERTUSS (ADULT) 0.5 ML VIAL IM* ONE (09:00)
[2017-03-21] MEDS ORDERED: MEASLES,MUMPS,RUBELLA VACCINE INJ SC* ONE (09:00)
== END 2017-03-21 15:25 | disposition home or self-care (01) | DRG 774 ==
LOC: OBG 11:01 → OBT 11:01 → OBG 15:12 → OBT 15:12 → L-D 03-16 22:30 → PP1 03-19 08:46
PROVIDERS: ADMIT Specialist; ATTEND Specialist
PROC: 10E0XZZ Delivery of Products of Conception, External Approach (ICD-10-PCS; principal; 2017-03-19)
DX: O42.913 Preterm premature rupture of membranes, unspecified as to length of time between rupture and onset of labor, third trimester (principal); O75.3 Other infection during labor; N39.0 Urinary tract infection, site not specified; Z68.41 Body mass index [BMI] 40.0-44.9, adult; Z37.0 Single live birth; Z3A.34 34 weeks gestation of pregnancy; Z88.0 Allergy status to penicillin; O76 Abnormality in fetal heart rate and rhythm complicating labor and delivery; O69.81X0 Labor and delivery complicated by cord around neck, without compression, not applicable or unspecified; O99.214 Obesity complicating childbirth; E66.01 Morbid (severe) obesity due to excess calories
CPT/HCPCS: 62319; 71010; 76815; 76818; 80053; 80202; 81001; 81003; 83735; 84112; 85025; 85610; 85730; 86592; 86703; 86900; 86901; 87070; 87081; 87086; 87340; 88307; 90715; 99464; G0463; J0456; J0702; J2405; J2590; J3010; J3370; J3475; J7050; J7120

== ENCOUNTER 2017-05-08 17:09 | Emergency (ER) | END 2017-05-08 18:03 | disposition home or self-care (01) ==

== ENCOUNTER 2018-02-27 17:43 | Emergency (ER) | END 2018-02-27 20:42 | disposition home or self-care (01) ==

== ENCOUNTER 2018-05-19 12:35 | Outpatient (CLI) | payer OTHER ==
[~2018-05-19] VITALS: Ht 154.9 cm; Wt 106.1 kg
[~2018-05-19 12:35] MED LIST changes: +ACET500C5 PO; +CETI10TA34 PO; -FER325 PO; +KETO5DRO71 OP; +MINE3.5O30 RIGHT EYE; +ONDA4TAB14 PO; -PRENAT PO
[2018-05-19 13:29] VITALS: Ht 154.9 cm; Wt 106.1 kg
[2018-05-19] MEDS ORDERED: PREN-93 PO (13:29)
[2018-05-19 13:30] VITALS: BP 114/55; PULSE 71; RESP 18
--- NOTE | 2018-05-19 15:08 | TRIAGE ---
OB Triage Datetime Report Generated by CPN: 05/19/2018 15:08 Datetime: 05/19/2018 14:00 Stage of : OB Triage Maternal Assessment Level of Consciousness: Fully Conscious Labor Evaluation Frequency: 0 Monitor Mode: External Resting Tone [place]: Relaxed Heart Rate FHR Baseline Rate: 135 Monitor Mode: External US Variability: Moderate 6-25 bpm Accelerations: 15X15 Decelerations: None Category: Category I Pain Assessment Pain Scale: 4 Pain Presence: Intermittent Pain Type: Pressure Pain Location: Perineum Pain Goal: 3 Pain Relief Measures: Comfort Measures Membrane Status: Intact Vaginal Bleeding: None Datetime: 05/19/2018 13:36 Vaginal Exam Dilatation (cms): 0.0 Exam By: KHEMANI Pool: Negative Nitrazine: Negative Datetime: 05/19/2018 13:04 Assessment Type: Triage Maternal Assessment Level of Consciousness: Fully Conscious DTR's/Clonus: DTRs 2+; No Clonus Headache: Denies Blurred Vision: No Respiratory Effort: Unlabored; Regular Rhythm; Equal Expansion Breath Sounds, Left: Clear and Equal Breath Sounds, Right: Clear and Equal Nausea/Vomiting: Denies RUQ Epigastric Pain: Denies Lower Extremities Edema: None Degree: None Upper Extremities Edema: None Degree: None Facial Edema: None Fall Risk Assessment History of Falling: (0) No Secondary Diagnosis: (0) No Ambulatory Aid: (0) Bedrest/Nurse Assist IV Therapy: (0) No Gait: (0) Normal/Bedrest/Immobile Mental Status: (0) Oriented to Own Ability Fall Score: 0 Fall Risk Score Definition: No Risk: No action required Datetime: 05/19/2018 13:02 Time of Arrival: 05/19/2018 12:25 EGA: 30.4 Arrived By: Ambulatory Arrived From: Home Chief Complaint: PT HERE C/O DFM/VG. PRESSURE Movement: Present Contractions: Denies/Absent Time Contractions Began: 05/18/2018 23:00 Rupture of Membranes: Unsure Vaginal Bleeding: None Vaginal Discharge: Present Recent Sexual Intercouse: Denies Abdominal Trauma: Not Applicable Patient Complaints: Contractions; Cramping; Back Pain Time Provider Notified: 05/19/2018 13:15 Provider Notified: JAZLYN Initial Plan: ROM PLUS/BPP/CVL/EFW/U-TOX/FFN/UA Datetime: 05/19/2018 12:55 Monitor Mode: External Monitor Mode: External US
--- NOTE | 2018-05-19 15:22 | PN ---
Triage Information Date/Time Reason for visit: Uterine contractions Weeks of Gestation 30+ /Para 3/1 Diabetes: none Hypertention: none Objective Vital Signs Date Temp Pulse Resp B/P (MAP) Pulse Ox O2 O2 Flow FiO2 Time Delivery Rate 05/19/18 98.4 71 18 114/55 Room Air 13:30 (74) Heart Rate: 140's Contractions: None Results/Medications Results 24 hrs Laboratory Tests Test 05/19/18 13:00 05/19/18 13:40 Urine Color YELLOW Urine Clarity SLIGHTLY CLOUDY A Urine pH 6.0 Urine Specific [place] 1.013 Urine Ketones 1+ H Urine Nitrite NEGATIVE Urine Bilirubin NEGATIVE Urine Urobilinogen NEGATIVE Urine Leukocyte Esterase 2+ H Urine Microscopic RBC 0 Urine Microscopic WBC 4 Urine Squamous Epithelial Cells FEW Urine Bacteria FEW A Urine Hemoglobin NEGATIVE Urine Glucose NEGATIVE Urine Total Protein NEGATIVE Urine Opiates Screen Negative Urine Barbiturates Negative Urine Amphetamines Screen Negative Urine Benzodiazepines Screen Negative Urine Cocaine Screen Negative Urine Cannabinoids Negative Membranes Rupture NEGATIVE Fibronectin NEGATIVE Disposition: Discharge Assessment/Plan Labs reviewed BPP 02/06 CXL WNL FFN test Neg POM plus test Neg Ultrasound reviewed Precautions discussed Questions answered F/u with provider OZZY STAHL M.D. May 19, 2018 15:22
== END 2018-05-19 15:05 | disposition home or self-care (01) ==
LOC: OBT 12:35 → L-D 12:37 → OBT 15:05
PROVIDERS: ATTEND Obstetrics & Gynecology
DX: O62.9 Abnormality of forces of labor, unspecified (principal); Z3A.30 30 weeks gestation of pregnancy
CPT/HCPCS: 76815; 76817; 76818; 80307; 81001; 82731; 84112; G0463

== ENCOUNTER 2018-07-08 20:00 | Outpatient (CLI) | payer MEDICAID, OTHER ==
[~2018-07-08] VITALS: Ht 154.9 cm; Wt 109.9 kg
[~2018-07-08 20:00] MED LIST changes: -ACET500C5 PO; -CETI10TA34 PO; -KETO5DRO71 OP; -MINE3.5O30 RIGHT EYE; -ONDA4TAB14 PO; +PREN-93 PO
[2018-07-08 20:21] VITALS: BP 130/72; PULSE 80; RESP 18; Ht 154.9 cm; Wt 109.9 kg
--- NOTE | 2018-07-08 23:00 | PN ---
Triage Information Date/Time July 08, 2018 Reason for visit: DFM Weeks of Gestation 37w 5d /Para 3/1 Diabetes: none Hypertention: none Additional information Pt reports some UC's and decreased FM and a BRUNO. PMHx: Psoriasis. PSHx: Ovarian cystectomy x 2. POBHx: x 1 at 33 weeks. Was on Ngoc for the until recently All: Egg yolk. Piperacillin. Tazobactam Objective Vital Signs Date Temp Pulse Resp B/P (MAP) Pulse Ox O2 O2 Flow FiO2 Time Delivery Rate 07/08/18 98.4 80 18 130/72 Room Air 20:21 (91) Heart Rate: 130's Heart Rate Comments Accels to 180 BPM. No decels. Contractions: >10 Minutes Apart (rare) Exam 2 cm/thick/-4 Results/Medications Imaging Results EFW 3293 grams. Anterior placenta. VTX. BPP 8/8 with an SAGAR of 7.2 cm. Disposition: Discharge Assessment/Plan A: IUP at 37w 5d. Decreased FM. P: D/c home. kick counts reviewed. F/u with her doctor tomorrow, as scheduled. OSWALDO MONTOYA MD Jul 08, 2018 23:00
--- NOTE | 2018-07-08 23:41 | TRIAGE ---
OB Triage Datetime Report Generated by CPN: 07/08/2018 23:41 Datetime: 07/08/2018 22:38 Labor Evaluation Frequency: x1 Monitor Mode: External Duration (sec)2399: 80 Quality: Mild Pattern: Normal: <= 5 Contractions in 10 Minutes Resting Tone [place]: Relaxed Heart Rate FHR Baseline Rate: 155 Monitor Mode: External US Variability: Moderate 6-25 bpm Decelerations: None Category: Category I Datetime: 07/08/2018 22:28 Monitor Mode: Palpation Resting Tone [place]: Relaxed Datetime: 07/08/2018 22:09 Pain Assessment Comments: Pt states she feels pain when the baby moves. Datetime: 07/08/2018 22:00 Labor Evaluation Frequency: x1 Monitor Mode: External Duration (sec)2399: 100 Quality: Mild Pattern: Normal: <= 5 Contractions in 10 Minutes Resting Tone [place]: Relaxed Heart Rate FHR Baseline Rate: 135 Monitor Mode: External US Variability: Moderate 6-25 bpm Accelerations: Prolonged Decelerations: None Category: Category I Datetime: 07/08/2018 21:09 Pain Assessment Pain Scale: 5 Pain Presence: Constant Pain Type: Ache Datetime: 07/08/2018 21:00 Labor Evaluation Frequency: x1 Monitor Mode: External Duration (sec)2399: 70 Quality: Mild Pattern: Normal: <= 5 Contractions in 10 Minutes Resting Tone [place]: Relaxed Heart Rate FHR Baseline Rate: 135 Monitor Mode: External US Variability: Moderate 6-25 bpm Accelerations: 15X15 Decelerations: None Category: Category I Datetime: 07/08/2018 20:31 Vaginal Exam Dilatation (cms): 2.0 Effacement (%): 0 Station: -4 Exam By: Myrtle Wise RN Vaginal Bleeding: None Cervix, Consistency: Moderate Cervix, Position: Posterior Presentation 'A': Unable to Assess Datetime: 07/08/2018 20:30 Labor Evaluation Frequency: NONE Monitor Mode: External Resting Tone [place]: Relaxed Heart Rate FHR Baseline Rate: 140 Monitor Mode: External US Variability: Moderate 6-25 bpm Accelerations: 15X15 Decelerations: None Category: Category I Datetime: 07/08/2018 20:14 Time of Arrival: 07/08/2018 19:50 EGA: 37.5 Arrived By: Wheelchair Arrived From: Home Chief Complaint: UC's Movement: Decreased Contractions: Irregular Time Contractions Began: 07/06/2018 19:00 Contractions: Every hour Rupture of Membranes: Denies Vaginal Bleeding: None Vaginal Discharge: Denies Recent Sexual Intercouse: Denies Abdominal Trauma: Not Applicable Patient Complaints: Contractions; Headache; Other Additional Patient Complaints: DFM and BRUNO for 2 days. Time Provider Notified: 07/08/2018 20:40 Provider Notified: Dr. Roche Initial Plan: CEFM Datetime: 07/08/2018 20:08 Pain Assessment Pain Scale: 7 Pain Presence: Constant Pain Type: Dull Pain Location: Head Datetime: 07/08/2018 20:07 Stage of : OB Triage Assessment Type: Triage Maternal Assessment Level of Consciousness: Fully Conscious DTR's/Clonus: DTRs 2+; No Clonus Headache: Denies Blurred Vision: No Respiratory Effort: Unlabored; Regular Rhythm; Equal Expansion Breath Sounds, Left: Clear and Equal Breath Sounds, Right: Clear and Equal Nausea/Vomiting: Denies RUQ Epigastric Pain: Denies Facial Edema: None Temperature Route: Oral Fall Risk Assessment History of Falling: (0) No Secondary Diagnosis: (0) No Ambulatory Aid: (0) Bedrest/Nurse Assist IV Therapy: (0) No Gait: (0) Normal/Bedrest/Immobile Mental Status: (0) Oriented to Own Ability Fall Score: 0 Fall Risk Score Definition: No Risk: No action required Pain Assessment Pain Scale: 8 Pain Presence: Intermittent Pain Type: Cramping Pain Location: Abdomen Datetime: 05/19/2018 13:04 Fall Score: 0 Fall Risk Score Definition: No Risk: No action required Datetime: 05/19/2018 13:02 EGA: 30.4
== END 2018-07-08 22:55 | disposition home or self-care (01) ==
LOC: OBT 20:00 → L-D 20:01 → OBT 22:55
PROVIDERS: ATTEND Obstetrics & Gynecology
DX: O36.8130 Decreased fetal movements, third trimester, not applicable or unspecified (principal); Z3A.37 37 weeks gestation of pregnancy
CPT/HCPCS: 76815; 76818; Z7500; G0463

== ENCOUNTER 2018-07-17 07:30 | Inpatient (IN) | payer MEDICAID ==
[~2018-07-17] VITALS: Ht 154.9 cm; Wt 110.4 kg
[2018-07-17 08:18] VITALS: Ht 154.9 cm; Wt 110.4 kg
[2018-07-17] MEDS ORDERED: CARBOPROST 250 MCG INJ IM PRN (08:30)
[2018-07-17] MEDS ORDERED: LIDOCAINE 1% (MPF) 30 ML INJ INJ PRN (08:30)
[2018-07-17] MEDS ORDERED: OXYTOCIN 30 UNITS/LR 500 ML IV SCH ×3 (08:30)
[2018-07-17] MEDS ORDERED: METHYLERGONOVINE 0.2 MG INJ IM PRN (08:30)
[2018-07-17] MEDS ORDERED: MISOPROSTOL 200 MCG TAB PR PRN (08:30)
[2018-07-17] MEDS ORDERED: BUTORPHANOL 2 MG INJ IV PRN (08:30)
[2018-07-17] MEDS ORDERED: OXYTOCIN 30 UNITS/LR 500 ML IV PRN (08:30)
[2018-07-17] MEDS ORDERED: IBUPROFEN 600 MG TAB PO PRN (08:30)
[2018-07-17] MEDS: LACTATED RINGER'S 1,000 ML IV SCH ×3 (09:30→17:44)
--- NOTE | 2018-07-17 17:07 | PREOPHP ---
DATE OF ADMISSION: 07/17/2018 HISTORY OF PRESENT ILLNESS: Ms. Brisa Medellin is a 28-year-old 2, para 1, EDC 07/24/2018, intrauterine at 39 weeks gestational age, was scheduled by Dr. Tanner today for inducti on secondary to history of low amniotic fluid. The patient reports good movement. Denies any contractions, vaginal bleeding, or discharge. Her care took place with Dr. Tanner. MEDICAL HISTORY: None. MEDICATIONS: vitamins. PAST SURGICAL HISTORY: History of laparoscopic bilateral ovarian cyst removal. OBSTETRICAL HISTORY: A x1 vaginal delivery. GYNECOLOGIC HISTORY: 14, regular 3 to 4 days. Denies any sexually transmitted disease. Sexually ac tive with 1 partner. SOCIAL HISTORY: Denies any smoking, drugs or alcohol. FAMILY HISTORY: None. REVIEW OF SYSTEMS: All within normal except history of present illness. PHYSICAL EXAMINATION: HEENT: Within normal. LUNGS: CTA bilateral. CARDIOVASCULAR: S1, S2, regular rhythm. ABDOMEN: Gravid, nontender. Negative CVA bilateral. EXTREMITIES: Negative edema. No calf tenderness. PELVIC: Vaginal exam 2 cm dilated, 50% effaced, -3 station. heart tracing category 1. [place]ering: Occasional contractions. ASSESSMENT: Intrauterine at 39 weeks gestational age, with history of low amniotic fluid. PLAN: Admit the patient for Pitocin induction. Risks, benefits and alternatives explained. All que stions were answered. Dictated By: CHAVEZ CARPENTER/SARA Conf#: [id number] DID#: [id number]
[2018-07-18] MEDS: LACTATED RINGER'S 1,000 ML IV SCH ×2 (02:02→03:17)
--- NOTE | 2018-07-18 02:37 | PREAC ---
Date/Time of Note Date/Time of Note DATE: 07/18/18 TIME: 02:36 Anesthesia Eval and Record Evaluation Time Pre-Procedure Interview DATE: 07/18/18 TIME: 02:36 Age 28 Sex female NPO: 8 hrs Preoperative diagnosis labor pain Planned procedure epidural Past Medical History Past Medical History: Includes GI: Morbid obesity Surgery & Anesthesia Issues No known issue Meds Anticoagulation: No Beta Amy within 24 hr: No Reason Beta Amy not given: Pt. not on B-Amy No Active Prescriptions or Reported Meds Current Medications Lactated Ringer's 1,000 ml @ 125 mls/hr Q8H IV Last administered on 07/18/18at 02:02; Admin Dose 125 MLS/HR; Start 07/17/18 at 08:06 Butorphanol Tartrate (Stadol) 2 mg Q2H PRN IV .PAIN; Start 07/17/18 at 08:30 Lidocaine (Xylocaine 1% (Mpf)) 30 ml ONCE PRN INJ .EPISIOTOMY; Start 07/17/18 at 08:30 Oxytocin/Lactated Ringer's 500 ml @ 500 mls/hr ONCE POST IV ; Start 07/17/18 at 08:30 Oxytocin/Lactated Ringer's 500 ml @ 125 mls/hr POST IV ; Start 07/17/18 at 08:30 Ibuprofen (Motrin) 600 mg ONCE PRN PO .PAIN 1-5; Start 07/17/18 at 08:30 Oxytocin/Lactated Ringer's 500 ml @ 0 mls/hr ONCE PRN IV .VAGINAL BLEEDING; Start 07/17/18 at 08:30 Methylergonovine Maleate (Methergine) 0.2 mg ONCE PRN IM .VAGINAL BLEEDING; Start 07/17/18 at 08:30 Carboprost Tromethamine (Hemabate) 250 mcg ONCE PRN IM .VAGINAL BLEEDING; Start 07/17/18 at 08:30 Misoprostol (Cytotec) 1,000 mcg ONCE PRN AR .VAGINAL BLEEDING; Start 07/17/18 at 08:30 Oxytocin/Lactated Ringer's 500 ml @ 0 mls/hr FOR INDUCTION IV Last administered on 07/17/18at 09:29; Admin Dose 1 MLS/HR; Start 07/17/18 at 08:30 Meds reviewed: Yes Allergies Coded Allergies: piperacillin sodium (Verified Allergy, Severe, SHORTNESS OF BREATH, DIZZINESS, 07/08/18) tazobactam sodium (Verified Allergy, Severe, SHORTNESS OF BREATH, DIZZINESS, 07/08/18) egg yolk (Verified Allergy, Intermediate, 07/08/18) HIVES AND BOILS Allergies Reviewed: Yes Labs/Studies Labs Reviewed: Reviewed by anesthesiologist Result Diagram: 07/17/18 0826 Laboratory Tests 07/17/18 08:26 Blood Bank Test 07/17/18 08:26 Antibody Screen NEGATIVE Blood Type O POSITIVE Rh Immune Globulin Candidate NO test: Positive Studies: ECG (n/a), CXR (n/a) Pre-procedure Exam Airway: Adequate mouth opening Mallampati: Mallampati II Teeth: Normal Lung: Normal Heart: Normal ASA Physical Status ASA physical status: 3 Emergency: None Planned Anesthetic Neuraxial: Epidural Pre-operative Attestations Prior to commencing anesthesia and surgery, the patient was re-evaluated, there was verification of: *The patient's identity *The results of appropriate recent lab work and preoperative vital signs *The above evaluation not changing prior to induction *Anesthetic plan, risk benefits, alternative and complications discussed with patient/family; questions answered; patient/family understands, accepts and w ishes to proceed. GARY BLUE MD Jul 18, 2018 02:37
[2018-07-18] MEDS ORDERED: NALOXONE (0.4 MG/ML) INJ IV PRN (03:00)
[2018-07-18] MEDS ORDERED: FENTAnyl 2MCG/ML-ROPIV 0.2% 100 ML BAG EPI SCH (03:00)
--- NOTE | 2018-07-18 06:27 | LDN ---
Date/Time of Note Date/Time of Note DATE: 07/18/18 TIME: 06:26 Delivery Summary Weeks of Gestation 39 Placenta Delivered: Spontaneously Meconium: none Episiotomy: No Anesthesia type: Epidural Estimated blood loss: 150 Sponge & Needle done & correct: Yes All needle counts correct: Yes Any foreign bodies felt in the: No Infant Delivery Information Sex Infant Sex: female Apgars 1 Minute: 8 5 Minute: 9 Suctioning Nose & mouth suctioned at ashly: No Delee suction performed: No Umbilical Cord Umbilical cord with: 3 Vessels Cord presentations: nuchal cord Nuchal cord present X: 1 Cord Blood was obtained: Yes CHAVEZ HOBSON MD Jul 18, 2018 06:26
[2018-07-18 09:15] VITALS: BP 128/63; PULSE 64; RESP 20
[2018-07-18 10:00] VITALS: BP 124/68; RESP 20
[2018-07-18] MEDS ORDERED: OXYTOCIN 30 UNITS/LR 500 ML IV SCH (10:15)
[2018-07-18] MEDS ORDERED: ACETAMINOPHEN 325 MG TAB PO PRN (10:30)
[2018-07-18] MEDS ORDERED: NACL 0.9% 3 ML SYG IV SCH (10:30)
[2018-07-18] MEDS ORDERED: LANOLIN HPA 1 PKT TOP PRN (10:30)
[2018-07-18] MEDS ORDERED: CARBOPROST 250 MCG INJ IM PRN (10:30)
[2018-07-18] MEDS ORDERED: BENZOCAINE 20% 56 ML SPRAY TOP PRN (10:30)
[2018-07-18] MEDS ORDERED: METHYLERGONOVINE 0.2 MG INJ IM PRN (10:30)
[2018-07-18] MEDS ORDERED: OXYTOCIN 30 UNITS/LR 500 ML IV PRN (10:30)
[2018-07-18] MEDS ORDERED: MISOPROSTOL 200 MCG TAB PR PRN (10:30)
[2018-07-18] MEDS ORDERED: OXYCODONE/ASPIRIN (4.88/325) TAB PO PRN ×2 (10:30)
[2018-07-18] MEDS ORDERED: WITCH HAZEL/GLYCERIN PAD PR PRN (10:30)
[2018-07-18] MEDS: IBUPROFEN 600 MG TAB PO SCH ×3 (11:25→23:36)
[2018-07-18 11:30] VITALS: BP 118/61; PULSE 57; RESP 20
[2018-07-18] MEDS: SENNA/DOCUSATE NA (8.6MG/50MG) TAB PO SCH ×2 (12:00→21:33)
[2018-07-18 15:39] VITALS: BP 110/62; PULSE 61; RESP 16
[2018-07-18 20:00] VITALS: BP 131/67; PULSE 63; RESP 19
--- NOTE | 2018-07-18 21:28 | PAC ---
Date/Time of Note Date/Time of Note DATE: 07/18/18 TIME: 21:28 Post-Anesthesia Notes Post-Anesthesia Note Last documented vital signs Vital Signs Date Temp Pulse Resp B/P (MAP) Pulse Ox O2 O2 Flow FiO2 Time Delivery Rate 07/18/18 98.0 63 19 131/67 Room Air 20:00 (88) Activity: WNL Respiratory function: WNL Cardiovascular function: WNL Mental status: Baseline Pain reasonably controlled: Yes Hydration appropriate: Yes Nausea/Vomiting absent: No GARY BLUE MD Jul 18, 2018 21:28
[2018-07-19] VITALS: BP 129/68; PULSE 69; RESP 18
[2018-07-19 04:00] VITALS: BP 124/68; PULSE 70; RESP 19
[2018-07-19] MEDS: IBUPROFEN 600 MG TAB PO SCH ×4 (05:35→23:44)
[2018-07-19 08:30] VITALS: BP 114/75; PULSE 78; RESP 18
[2018-07-19] MEDS: SENNA/DOCUSATE NA (8.6MG/50MG) TAB PO SCH ×2 (11:58→21:44)
--- NOTE | 2018-07-19 13:07 | PD.PPDC ---
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
[2018-07-19 15:35] VITALS: BP 99/55; PULSE 73; RESP 18
[2018-07-19 19:40] VITALS: BP 121/61; PULSE 71; RESP 18
[2018-07-20 03:50] VITALS: BP 128/60; PULSE 60; RESP 19
[2018-07-20] MEDS: IBUPROFEN 600 MG TAB PO SCH ×2 (05:33→11:47)
[2018-07-20 08:00] VITALS: BP 112/69; PULSE 62; RESP 15
[2018-07-20] MEDS ORDERED: DIPHTH/TET/ACEL PERTUSS (ADULT) 0.5 ML VIAL IM* ONE (09:00)
[2018-07-20] MEDS: SENNA/DOCUSATE NA (8.6MG/50MG) TAB PO SCH (09:00)
== END 2018-07-20 13:00 | disposition home or self-care (01) | DRG 807 ==
LOC: L-D 07:30 → MS1 07-18 09:04
PROVIDERS: ADMIT Obstetrics & Gynecology; ATTEND Obstetrics & Gynecology
PROC: 4A1HXCZ Monitoring of Products of Conception, Cardiac Rate, External Approach (ICD-10-PCS; 2018-07-17)
PROC: 3E0P7GC Introduction of Other Therapeutic Substance into Female Reproductive, Via Natural or Artificial Opening (ICD-10-PCS; 2018-07-17)
PROC: 10E0XZZ Delivery of Products of Conception, External Approach (ICD-10-PCS; principal; 2018-07-18)
PROC: 3E0234Z Introduction of Serum, Toxoid and Vaccine into Muscle, Percutaneous Approach (ICD-10-PCS; 2018-07-20)
DX: O41.03X0 Oligohydramnios, third trimester, not applicable or unspecified (principal); Z37.0 Single live birth; O69.81X0 Labor and delivery complicated by cord around neck, without compression, not applicable or unspecified; Z3A.39 39 weeks gestation of pregnancy; Z23 Encounter for immunization
CPT/HCPCS: 62319; 76815; 85025; 85610; 85730; 86592; 86850; 86900; 86901; 87340; 90715; J2590; J3010; J7120

== ENCOUNTER 2018-07-26 16:10 | Inpatient (IN) | payer MEDICAID ==
[~2018-07-26] VITALS: Ht 154.9 cm; Wt 105.4 kg
[2018-07-26] MEDS ORDERED: SODIUM CHLORIDE 0.9% 1L BAG IV* STA (16:40)
[2018-07-26] MEDS ORDERED: AZTREONAM 1 GM/NS (PMX) 50 ML IVPB STA (16:40)
[2018-07-26] MEDS ORDERED: VANCOMYCIN 1 GM (PMX) 250 ML IVPB STA (16:40)
[2018-07-26] MEDS ORDERED: morphine 4 MG/ML VIAL IV STA (16:44)
[2018-07-26] MEDS ORDERED: IBUPROFEN 800 MG TAB PO ONE (17:00)
[2018-07-26] MEDS ORDERED: SOD CHLORIDE 0.9% IVPB ONE (17:00)
[2018-07-26] MEDS ORDERED: CLINDAMYCIN 900 MG/D5W (PMX) 50 ML IVPB SCH (17:00)
[2018-07-26] MEDS ORDERED: GENTAMICIN IVPB ONE (17:00)
[2018-07-26] MEDS ORDERED: CLINDAMYCIN 900 MG INJ IV ONE (17:00)
--- NOTE | 2018-07-26 17:19 | ERD ---
ER Documentation Chief Complaint Chief Complaint Fevers and generalized myalgias today; tylenol at 1300 HPI 28-year-old female status post vaginal delivery by induction on July 18 presenting 8 days with complaints of subjective fevers, chills, and abdominal pain that started in her lower abdomen and is now radiating up the middle aspect of her abdomen. Her pain started about 5 hours prior to arrival. She also complains of low back pain. No nausea or vomiting. She does have foul-smelling vaginal discharge. The pain is worse with movement. No alleviating factors. ROS All systems reviewed and are negative except as per history of present illness. Medications Home Meds No Active Prescriptions or Reported Meds Allergies Allergies: Coded Allergies: Penicillins (Verified Allergy, Severe, 07/26/18) swelling of throat piperacillin sodium (Verified Allergy, Severe, SHORTNESS OF BREATH, DIZZINESS, 07/26/18) tazobactam sodium (Verified Allergy, Severe, SHORTNESS OF BREATH, DIZZINESS, 07/26/18) egg yolk (Verified Allergy, Intermediate, 07/26/18) HIVES AND BOILS PMhx/Soc History of Surgery: Yes (removal of ovarian cyst 2007) Anesthesia Reaction: No Hx Neurological Disorder: No Hx Respiratory Disorders: No Hx Cardiac Disorders: No Hx Psychiatric Problems: No Hx Miscellaneous Medical Probl: Yes (gerd, right ovarian cyst) Hx Alcohol Use: No Hx Substance Use: No Hx Tobacco Use: No FmHx Family History: No diabetes Physical Exam Vitals Vital Signs Date Temp Pulse Resp B/P (MAP) Pulse Ox O2 O2 Flow FiO2 Time Delivery Rate 07/26/18 84 18 140/71 100 Room Air 21:04 (94) 07/26/18 79 22 129/77 100 Room Air 19:09 (94) 07/26/18 98.8 82 16 151/77 100 Room Air 18:10 (101) 07/26/18 102.2 119 22 172/99 99 16:25 (123) Physical Exam Const: Appears to be in distress due to pain. Nontoxic. Head: Atraumatic Eyes: Normal Conjunctiva ENT: Normal External Ears, Nose and Mouth. Neck: Full range of motion. No meningismus. Resp: Clear to auscultation bilaterally Cardio: Tachycardic with regular rhythm, no murmurs Abd: Soft, distended secondary to status. Diffuse tenderness, most markedly in the lower abdomen suprapubically. Normal bowel sounds Skin: Warm, dry. No petechiae or rashes Back: No midline or flank tenderness Ext: No cyanosis, or edema Neur: Awake and alert, normal speech, no facial asymmetry, moving all ex tremities Psych: Normal Mood and Affect Result Diagram: 07/26/18 1646 07/26/18 1646 Results 24 hrs Laboratory Tests Test 07/26/18 16:46 07/26/18 17:40 07/26/18 18:40 07/26/18 20:42 White Blood Count 10.4 10^3/ul Red Blood Count 4.90 10^6/ul Hemoglobin 13.5 g/dl Hematocrit 41.4 % Mean Corpuscular 84.5 fl Volume Mean Corpuscular 27.6 pg Hemoglobin Mean Corpuscular 32.6 g/dl Hemoglobin Concen t Red Cell 15.8 % Distribution Width Platelet Count 409 10^3/UL Mean Platelet 9.7 fl Volume Immature 0.400 % Granulocytes % Neutrophils % 79.2 % Lymphocytes % 13.6 % Monocytes % 5.4 % Eosinophils % 1.0 % Basophils % 0.4 % Nucleated Red 0.0 /100WBC Blood Cells % Immature 0.040 10^3/ul Granulocytes # Neutrophils # 8.2 10^3/ul Lymphocytes # 1.4 10^3/ul Monocytes # 0.6 10^3/ul Eosinophils # 0.1 10^3/ul Basophils # 0.0 10^3/ul Nucleated Red 0.0 10^3/ul Blood Cells # Prothrombin Time 12.9 Sec Prothrombin Time 1.0 Ratio INR International 0.96 Normalized Ratio Activated 33.0 Sec Partial Thrombopl ast Time Sodium Level 139 mmol/L Potassium Level 4.0 mmol/L Chloride Level 104 mmol/L Carbon Dioxide 21 mmol/L Level Anion Gap 14 Blood Urea 12 mg/dl Nitrogen Creatinine 0.85 mg/dl Est Glomerular > 60 mL/min Filtrat Rate mL/min Glucose Level 97 mg/dl Lactic Acid Level 1.9 mmol/L 1.5 mmol/L 1.0 mmol/L Calcium Level 8.8 mg/dl Total Bilirubin 0.2 mg/dl Direct Bilirubin 0.00 mg/dl Indirect 0.2 mg/dl Bilirubin Aspartate Amino 20 IU/L Transf (AST/SGOT) Alanine 26 IU/L Aminotransferase (ALT/SGPT) Alkaline 138 IU/L Phosphatase Total Protein 7.6 g/dl Albumin 4.0 g/dl Globulin 3.60 g/dl Albumin/Globulin 1.11 Ratio Lipase 88 U/L Urine Color YELLOW Urine Clarity CLEAR Urine pH 7.0 Urine Specific 1.012 [place] Urine Ketones NEGATIVE mg/dL Urine Nitrite NEGATIVE mg/dL Urine Bilirubin NEGATIVE mg/dL Urine NEGATIVE mg/dL Urobilinogen Urine Leukocyte NEGATIVE Noemy/ul Esterase Urine Microscopic 2 /HPF RBC Urine Microscopic 2 /HPF WBC Urine Bacteria FEW /HPF Urine Hemoglobin 1+ mg/dL Urine Glucose NEGATIVE mg/dL Urine Total NEGATIVE mg/dl Protein Current Medications Medications Dose Sig/Marion Start Time Status Last (Trade) Ordered Route PRN Stop Time Admin Dose Reason Admin Sodium 1,430 ml BOLUS OVER 2 07/26/18 DC 07/26/18 Chloride HOURS STAT 16:40 16:44 (NS) IV* 07/26/18 16:43 Vancomycin 250 ml @ ONCE STAT 07/26/18 DC HCl 125 mls/hr IVPB 16:40 07/26/18 16:50 Aztreonam 50 ml @ ONCE STAT 07/26/18 DC 100 mls/hr IVPB 16:40 07/26/18 16:50 Morphine 6 mg ONCE STAT 07/26/18 DC 07/26/18 Sulfate IV 16:44 17:03 (morphine) 07/26/18 16:46 Ibuprofen 800 mg ONCE ONCE 07/26/18 DC 07/26/18 (Motrin) PO 17:00 17:03 07/26/18 17:01 Clindamycin 900 mg ONCE ONCE 07/26/18 Cancel Phosphate IV 17:00 (Cleocin) 07/26/18 17:01 Gentamicin 62.5 ml @ ONCE ONCE 07/26/18 Cancel Sulfate 500 100 mls/hr IVPB 17:00 mg/ Sodium 07/26/18 17:37 Chloride Clindamycin 50 ml @ 50 ONCE IVPB 07/26/18 DC 07/26/18 HCl/ mls/hr 17:00 17:15 Dextrose 07/26/18 17:59 Gentamicin 109 ml @ ONCE ONCE 07/26/18 DC 07/26/18 Sulfate 360 100 mls/hr IVPB 17:30 18:03 mg/ Dextrose 07/26/18 18:35 Procedures/MDM EMERGENT LABS AND DIAGNOSTIC STUDIES: Lab Results above were reviewed and interpreted by me. CBC: no anemia or evidence of infection CMP: No evidence of electrolyte abnormality, renal failure, hypoglycemia, liver failure, or biliary obstruction Lactate within normal limits without evidence of sepsis or tissue hypoperfusion UA: no evidence of infection Radiology Results as interpreted by Radiology below were reviewed by Simeon Dorsey MD: CT abdomen and pelvis: IMPRESSION: 1. When compared to the previous CT of 01/30/2013, the uterus is now enlarged compatible with a uterus. Adjacent to the right lateral fundus is an 11.4 x 8.2 x 7.8 cm heterogeneous mass. The right ovary seen on the previous study is not identified separate from the mass. Previously no exophytic fibroid was identified. There is right adnexal mass raises the possibility of a hemorrhagic cyst and right ovarian torsion cannot entirely be excluded. Correlation with pelvic sonography may be useful. 2. The stomach is now mildly distended with food debris but there is again no evidence of bowel obstruction or inflammation. A normal vermiform appendix is again evident. 3. A Rudolph catheter is seen within the bladder along with some air which is likely iatrogenic. There is no evidence of urinary outflow obstruction or ureterolithiasis. 4. Hepatomegaly, unchanged and now mild splenomegaly with no focal lesion. 5. There is no free intraperitoneal fluid or air. 6. Minimal discoid atelectatic changes are again seen within the posterior lung bases. Findings of a heterogeneous right adnexal mass measuring 11.4 x 8.2 x 7.8 cm correlation with pelvic sonography may be useful to exclude right ovarian torsion. were telephoned by Hansel Boykin MD to Dr. Dorsey on 07/26/2018 at 2005 hours. Physician Omar Date Time Electronically viewed and signed by Physician Omar on 07/26/2018 20:15 Chest x-ray shows no acute abnormalities Ultrasound pelvis: Large adnexal mass on the right with normal flow to ovaries. Initial Nursing notes reviewed. Previous Medical Records requested via the Electronic Health Record. EMERGENCY DEPARTMENT COURSE / MEDICAL DECISION MAKING: Patient is presenting 8 days with abdominal pain, fever, and tachycardia. Patient's presentation was concerning for endometritis. Sepsis workup was initiated. Appropriate antibiotics were given for endometritis. Her workup did not show evidence of severe sepsis or septic shock. However a CT was done to evaluate for possible acute abdomen and other abnormality other than endometritis. CT did show a right adnexal large mass. I consulted the OB outbound telemarketing representative on-call, who after reviewing the imaging, is concerned about possi ble right-sided ovarian torsion. Given the patient's significant pain, she would like to take the patient to the operating room for presumed torsion. Patient's infectious symptoms have not stabilized and the patient is at risk of rapid decompensation. The patient will be admitted for careful hydration, antibiotic therapy, and infectious source control. Severe Sepsis Assessment: Infectious Source: Suspected endometritis Severe Sepsis Management: Blood Cultures X 2 before broad spectrum antibiotics initiated within 3 hours of recognition. 30 ml/kg NS bolus Completed Initial Lactate: Normal Repeat Lactate normal Critical Care: Time: 40 minutes Treatments/Evaluations: Emergent fluid management, while maintaining close respiratory support. Immediate broad spectrum antibiotic therapy. Simultaneous assessment for possible sources in order to direct therapy. Consideration for invasive and chemical support to prevent respiratory or cardiac collapse. Septic Shock Assessment (1 hour post 30 ml/kg fluid bolus): Hypotension (SBP < 90 or 40 mmHg drop, MAP < 65): [No] Lactic acid > 4.0 [No] Accepting Care Team: Current data and ongoing care discussed. Time: Time of admission Primary Provider: Dr. Salas Departure Diagnosis: Primary Impression: Endometritis Additional Impressions: Sepsis Sepsis type: sepsis due to unspecified organism Qualified Codes: A41.9 - Sepsis, unspecified organism Adnexal mass Condition: Serious DEVAUGHN DORSEY MD Jul 26, 2018 17:19
[2018-07-26] MEDS ORDERED: GENTAMICIN 360 MG in DEXTROSE 5% 100 ML IVPB ONE (17:30)
--- NOTE | 2018-07-26 23:25 | PREAC ---
Date/Time of Note Date/Time of Note DATE: 07/26/18 TIME: 23:22 Anesthesia Eval and Record Evaluation Time Pre-Procedure Interview DATE: 07/26/18 TIME: 23:22 Age 28 Sex female NPO: 8 hrs Preoperative diagnosis ovarian cyst, suspected ovarian torsion Planned procedure exploratory laparotomy, ovarian cystectomy, possible detorsion of ovarian torsion Past Medical History Past Medical History: Includes GI: Morbid obesity Surgery & Anesthesia Issues No known issue Meds Anticoagulation: No Beta Amy within 24 hr: No Reason Beta Amy not given: Pt. not on B-Amy No Active Prescriptions or Reported Meds Meds reviewed: Yes Allergies Coded Allergies: Penicillins (Verified Allergy, Severe, 07/26/18) swelling of throat piperacillin sodium (Verified Allergy, Severe, SHORTNESS OF BREATH, DIZZINESS, 07/26/18) tazobactam sodium (Verified Allergy, Severe, SHORTNESS OF BREATH, DIZZINESS, 07/26/18) egg yolk (Verified Allergy, Intermediate, 07/26/18) HIVES AND BOILS Allergies Reviewed: Yes Labs/Studies Labs Reviewed: Reviewed by anesthesiologist Result Diagram: 07/26/18 1646 07/26/18 1646 Laboratory Tests 07/26/18 16:46 test: Negative Pre-procedure Exam Last vitals Vital Signs Date Temp Pulse Resp B/P (MAP) Pulse Ox O2 O2 Flow FiO2 Time Delivery Rate 07/26/18 84 18 140/71 100 Room Air 21:04 (94) 07/26/18 98.8 18:10 Airway: Adequate mouth opening, Adequate thyromental dist Mallampati: Mallampati II Teeth: Normal Lung: Normal Heart: Normal ASA Physical Status ASA physical status: 3 Emergency: None Planned Anesthetic General/MAC: ETT Nerve block: TAP (bilateral) Planned Pain Management Single shot nerve block, Parenteral pain med Pre-operative Attestations Prior to commencing anesthesia and surgery, the patient was re-evaluated, there was verification of: *The patient's identity *The results of appropriate recent lab work and preoperative vital signs *The above evaluation not changing prior to induction *Anesthetic plan, risk benefits, alternative and complications discussed with patient/family; questions answered; patient/family understands, accepts and wishes to proceed. RAOUL HOPKINS MD Jul 26, 2018 23:25
[2018-07-26] MEDS ORDERED: PROCHLORPERAZINE 10 MG INJ IV PRN (23:30)
[2018-07-26] MEDS ORDERED: DIPHENHYDRAMINE 50 MG INJ IV PRN (23:30)
[2018-07-26] MEDS ORDERED: HYDROmorphONE 1 MG/5 ML IV SYRINGE IV PRN ×3 (23:30)
[2018-07-26] MEDS ORDERED: FENTAnyl 50 MCG/ML VIAL IV PRN ×3 (23:30)
[2018-07-26] MEDS ORDERED: MEPERIDINE 25 MG INJ IV PRN (23:30)
[2018-07-26] MEDS ORDERED: ONDANSETRON 4 MG INJ IV PRN (23:30)
[2018-07-26] MEDS ORDERED: MIDAZOLAM 1 MG/ML 2 ML INJ ONE (23:46)
[2018-07-26] MEDS ORDERED: morphine SULFATE/PF (10 MG/10 ML) INJ ONE (23:46)
[2018-07-27] VITALS (19 sets, daily range): BP systolic 115–159; BP diastolic 60–96; PULSE 60–77; RESP 15–20; Ht 154.9 cm; Wt 105.4 kg
--- NOTE | 2018-07-27 00:17 | HP ---
Date/Time of Note Date/Time of Note DATE: 07/27/18 TIME: 00:11 Assessment/Plan VTE Prophylaxis SCD applied (from Nsg): Yes Pharmacological prophylaxis: LMWH Lines/Catheters IV Catheter Type (from Nrsg): Peripheral IV Urinary Cath still in place: Yes Reason Cath still needed: other (indicate) Assessment/Plan Assessment/Plan 11 cm adnexal mass suspected for possible ovarian torsion Plan for exploratory laparotomy, ovarian cystectomy, possible detorsion of the ovarian torsion All benefits and risks including but not limited to bleeding which may require blood transfusion, infection, possible trauma to other organs including bladder and bowel were discussed with the patient All patient's questions were answered. She completely understands the plan of care and agrees to proceed IV antibiotics were initiated in the ED Result Diagram: 07/26/18 1646 07/26/18 1646 Results 24hrs Laboratory Tests Test 07/26/18 16:46 07/26/18 17:40 07/26/18 18:40 07/26/18 20:42 White Blood Count 10.4 Red Blood Count 4.90 # Hemoglobin 13.5 # Hematocrit 41.4 # Mean Corpuscular 84.5 Volume Mean Corpuscular 27.6 L Hemoglobin Mean Corpuscular 32.6 Hemoglobin Concent Red Cell 15.8 H Distribution Width Platelet Count 409 # Mean Platelet Volume 9.7 Immature 0.400 Granulocytes % Neutrophils % 79.2 H Lymphocytes % 13.6 L Monocytes % 5.4 Eosinophils % 1.0 Basophils % 0.4 Nucleated Red Blood 0.0 Cells % Immature 0.040 H Granulocytes # Neutrophils # 8.2 H Lymphocytes # 1.4 Monocytes # 0.6 Eosinophils # 0.1 Basophils # 0.0 Nucleated Red Blood 0.0 Cells # Prothrombin Time 12.9 Prothrombin Time 1.0 Ratio INR International 0.96 Normalized Ratio Activated 33.0 Partial Thromboplast Time Sodium Level 139 Potassium Level 4.0 Chloride Level 104 Carbon Dioxide Level 21 Anion Gap 14 H Blood Urea Nitrogen 12 Creatinine 0.85 Est Glomerular > 60 Filtrat Rate mL/min Glucose Level 97 Lactic Acid Level 1.9 1.5 1.0 Calcium Level 8.8 Total Bilirubin 0.2 Direct Bilirubin 0.00 Indirect Bilirubin 0.2 Aspartate Amino 20 Transf (AST/SGOT) Alanine 26 Aminotransferase (AL T/SGPT) Alkaline Phosphatase 138 H Total Protein 7.6 Albumin 4.0 Globulin 3.60 H Albumin/Globulin 1.11 Ratio Lipase 88 Urine Color YELLOW Urine Clarity CLEAR Urine pH 7.0 Urine Specific 1.012 [place] Urine Ketones NEGATIVE Urine Nitrite NEGATIVE Urine Bilirubin NEGATIVE Urine Urobilinogen NEGATIVE Urine Leukocyte NEGATIVE Esterase Urine Microscopic 2 RBC Urine Microscopic 2 WBC Urine Bacteria FEW A Urine Hemoglobin 1+ H Urine Glucose NEGATIVE Urine Total Protein NEGATIVE HPI/ROS Admit Date/Time Admit Date/Time Hx of Present Illness 28-year-old 2 para 2 day #8 status post Patient reports her recent was complicated with labor which she was placed on Ngoc and subsequently delivered at term gestation Patient presents with chief complaint of severe abdominal pain which started 3 days ago and progressively worsening. She presents with fever 102, no nausea and vomiting Reports of foul-smelling vaginal discharge ROS Constitutional: no complaints, improved Eyes: no complaints ENT: no complaints Respiratory: no complaints Cardiovascular: no complaints Gastrointestinal: no complaints Genitourinary: other (diffuse pain with rebound and tenderness) Musculoskeletal: no complaints Skin: no complaints Neurologic: no complaints Endocrine: no complaints Lymphatic: no complaints Psychological: no complaints, nl mood/affect Immunologic: no complaints PMH/Family/Social Past Medical History Medical History: no pertinent history Medications Current Medications Hydromorphone HCl (Dilaudid) 0.2 mg PACU PRN IV MILD PAIN 1-3; Start 07/26/18 at 23:30; Stop 07/27/18 at 04:30 Hydromorphone HCl (Dilaudid) 0.4 mg PACU PRN IV MOD PAIN 4-6; Start 07/26/18 at 23:30; Stop 07/27/18 at 04:30 Hydromorphone HCl (Dilaudid) 0.6 mg PACU PRN IV SEVERE PAIN 7-10; Start 07/26/18 at 23:30; Stop 07/27/18 at 04:30 Fentanyl (Sublimaze) 25 mcg PACU ORDER PRN IV MILD PAIN 1-3; Start 07/26/18 at 23:30; Stop 07/27/18 at 04:30 Fentanyl (Sublimaze) 50 mcg PACU ORDER PRN IV MOD PAIN 4-6; Start 07/26/18 at 23:30; Stop 07/27/18 at 04:30 Fentanyl (Sublimaze) 75 mcg PACU ORDER PRN IV SEVERE PAIN 7-10; Start 07/26/18 at 23:30; Stop 07/27/18 at 04:30 Ondansetron HCl (Zofran Inj) 4 mg PACU ORDER PRN IV NAUSEA/VOMITING; Start 07/26/18 at 23:30; Stop 07/27/18 at 04:30 Prochlorperazine (Compazine Inj) 5 mg PACU ORDER PRN IV NAUSEA/VOMITING; Start 07/26/18 at 23:30; Stop 07/27/18 at 04:30 Meperidine HCl (Demerol) 25 mg PACU ORDER PRN IV .RIGORS; Start 07/26/18 at 23:30; Stop 07/27/18 at 04:30 Diphenhydramine HCl (Benadryl) 25 mg PACU ORDER PRN IV .PRURITUS; Start 07/26/18 at 23:30; Stop 07/27/18 at 04:30 Coded Allergies: Penicillins (Verified Allergy, Severe, 07/26/18) swelling of throat piperacillin sodium (Verified Allergy, Severe, SHORTNESS OF BREATH, DIZZINESS, 07/26/18) tazobactam sodium (Verified Allergy, Severe, SHORTNESS OF BREATH, DIZZINESS, 07/26/18) egg yolk (Verified Allergy, Intermediate, 07/26/18) HIVES AND BOILS Past Surgical History Past Surgical Hx: other (Previous laparoscopic surgery for bilateral ovarian cyst) Family History Significant Family History: no pertinent family hx Social History Alcohol Use: none Smoking Status: Never smoker Drug Use: none Exam/Review of Systems Vital Signs Vitals Vital Signs Date Temp Pulse Resp B/P (MAP) Pulse Ox O2 O2 Flow FiO2 Time Delivery Rate 07/26/18 84 18 140/71 100 Room Air 21:04 (94) 07/26/18 98.8 18:10 Exam Constitutional: alert, oriented, well developed Psych: no complaints, nl mood/affect Head: normocephalic, atraumatic Eyes: nl conjunctiva, EOMI, nl lids, nl sclera, PERRL ENMT: nl external ears & nose, nl lips & teeth, nl nasal mucosa & septum Neck: supple, non-tender Respiratory: clear to auscultation, normal air movement Cardiovascular: regular rate and rhythm, nl pulses Gastrointestinal: soft, nl liver, spleen, distended, other (Positive bilateral lower quadrant pelvic pain with rebound and tenderness with pain level of 8 out of 10, pain greater in the left lower quadrant than the right) Musculoskeletal: nl extremities to inspection Extremities: normal pulses Neurological: CHILD CARE II-XII intact, nl mental status, nl speech, nl strength Skin: nl turgor; No rash or lesions Lymph: nl lymph nodes Additional Comments PROCEDURE: CT Abdomen and Pelvis without contrast CLINICAL INDICATION: Abdominal pain, fever, nausea, chills, x1 week TECHNIQUE: Transaxial images were obtained through the abdomen and pelvis on a multi-slice scanner without the intravenous contrast administration. No oral contrast had previously been given. Sagittal and coronal re-formations were subsequently reconstructed. One or more of the following dose reduction techniques were used: - Automated exposure control. - Adjustment of the mA and/or kV according to patient size. - Use of iterative reconstruction technique. DICOM images are available. Radiation dose: CTDIvol = 22.89 mGy; DLP = 1388.96 mGy-cm. COMPARISON: 01/30/2013 FINDINGS: Lung bases: Mild compressive discoid atelectatic changes are seen within the posterior lung bases. Liver: The liver remains enlarged with the sagittal diameter of the right lobe measuring 19.0 cm. No focal lesion is identified. Gallbladder: The wall is not thickened. No radiopaque stones are identified. Bile ducts: The intra and extrahepatic bile ducts are normal in caliber. Pancreas: Appears normal with no mass or inflammation evident. Spleen: The spleen is mildly enlarged with the maximal diameter measuring 12.8 cm. Adrenals: Normal with no mass identified. Kidneys, ureters and bladder: The kidneys are normal in size and there is no mass, pathological calcification, or hydronephrosis evident. There is no perinephric stranding. The ureters are normal in caliber and no ureteroliths are identified. A Rudolph catheter is seen within the bladder along with intraluminal air which is likely iatrogenic. The bladder is suboptimally distended. Reproductive organs: There is an enlarged uterus. There is a soft tissue mass in the right adnexal region measuring 8.2 x 7.8 cm in cross diameter and extending for a craniocaudad length of 11.4 cm. This mass lies adjacent to the right uterine fundus and inferior to the cecum. A separate right ovary is not identified. The left ovary appears unremarkable. Stomach and bowel: The stomach is mildly distended with food debris. There is no evidence of bowel obstruction or inflammation. Appendix: A normal vermiform appendix is evident. Peritoneum: No free intraperitoneal fluid or air is identified. Aorta: Normal in caliber with no aneurysmal dilatation. IVC: Unremarkable. Lymph nodes: A few bilateral inguinal nodes are evident up to 8 mm in short diameter. Osseous structures: The osseous elements appear intact. IMPRESSION: 1. When compared to the previous CT of 01/30/2013, the uterus is now enlarged compatible with a uterus. Adjacent to the right lateral fundus is an 11.4 x 8.2 x 7.8 cm heterogeneous mass. The right ovary seen on the previous study is not identified separate from the mass. Previously no exophytic fibroid was identified. There is right adnexal mass raises the possibility of a hemorrhagic cyst and right ovarian torsion cannot entirely be excluded. Correlation with pelvic sonography may be useful. 2. The stomach is now mildly distended with food debris but there is again no evidence of bowel obstruction or inflammation. A normal vermiform appendix is again evident. 3. A Rudolph catheter is seen within the bladder along with some air which is likely iatrogenic. There is no evidence of urinary outflow obstruction or ureterolithiasis. 4. Hepatomegaly, unchanged and now mild splenomegaly with no focal lesion. 5. There is no free intraperitoneal fluid or air. 6. Minimal discoid atelectatic changes are again seen within the posterior lung bases. Findings of a heterogeneous right adnexal mass measuring 11.4 x 8.2 x 7.8 cm correlation with pelvic sonography may be useful to exclude right ovarian torsion. were telephoned by Hansel Boykin MD to Dr. Dorsey on 07/26/2018 at 2005 hours. Physician Omar Date Time Electronically viewed and signed by Physician Omar on 07/26/2018 20:15 RH/ CC: DEVAUGHN DORSEY MD [id number] PROCEDURE: US Pelvis Non-OB CLINICAL INDICATION: Right adnexal mass and pain, evaluate for torsion. TECHNIQUE: Images were taken during real time trans pelvic and endovaginal interrogation. Color-flow and Doppler interrogation of the ovaries was performed. COMPARISON: Comparison to the previous CT of the abdomen and pelvis done earlier on the same date. The previous CT demonstrated an 11.4 x 8.2 x 7.8 cm heterogeneous right adnexal mass with no separate right ovary identified. The uterus was enlarged compatible with a uterus. No free intraperitoneal fluid was evident. A Rudolph catheter was seen within the bladder. FINDINGS: Uterus: The uterus is enlarged compatible with a uterus measuring 14.0 cm in sagittal diameter and 11.4 x 6.0 cm in cross diameter. The endometrial stripe measures 1.0 cm. There is a trace of fluid within the endometrial cavity. There is no vascularity to the endometrium. Ovaries: The right ovary measures 4.1 x 2.5 x 2.3 cm and demonstrates vascular flow on Doppler. The left ovary is not identified. Adnexa: There is again a large heterogeneous right adnexal mass measuring 11.0 x 7.1 x 7.0 cm which extends inferior and is inseparable from the right ovary. There is no significant vascularity within this mass. Free intraperitoneal fluid: There is a small amount of free fluid seen in the left adnexal region. IMPRESSION: 1. Enlarged uterus with the endometrial stripe measuring 1.0 cm. There is a trace of fluid within the endometrial cavity. There is no endometrial vascularity evident on color-flow imaging. 2. The right ovary appears normal in size and demonstrates vascular flow on Doppler. Inseparable from the right ovary extending inferiorly is a heterogeneous right adnexal mass measuring 11.0 x 7.1 x 7.0 cm that demonstrates no significant vascularity on color-flow imaging. It is not certain whether this represents a large hemorrhagic cyst or a solid mass. 3. The left ovary is not identified. 4. There is a small amount of free intraperitoneal fluid in the left adnexal region. Physician Omar Date Time Electronically viewed and signed by Physician Omar on 07/26/2018 21:57 RH/ CC: DEVAUGHN DORSEY MD [id number] PROSPER PANIAGUA MD Jul 27, 2018 00:17
[2018-07-27] MEDS ORDERED: LIDOCAINE 2% (SDV) 5 ML INJ ONE (00:23)
[2018-07-27] MEDS ORDERED: SUCCINYLCHOLINE CHLORIDE 100 MG/5 ML SYG IV ONE (00:23)
[2018-07-27] MEDS ORDERED: PROPOFOL 40 ML ONE (00:23)
[2018-07-27] MEDS ORDERED: ONDANSETRON 4 MG INJ ONE (00:23)
[2018-07-27] MEDS ORDERED: FAMOTIDINE 20 MG INJ ONE (00:23)
[2018-07-27] MEDS ORDERED: ROCURONIUM 50 MG INJ ONE (00:23)
[2018-07-27] MEDS ORDERED: DEXAMETHASONE 4 MG/ML 5 ML INJ ONE (00:23)
[2018-07-27] MEDS ORDERED: CLINDAMYCIN 900 MG/D5W (PMX) 50 ML IVPB ONE (00:37)
[2018-07-27] MEDS ORDERED: KETOROLAC 30 MG INJ IV PRN (01:00)
[2018-07-27] MEDS ORDERED: ONDANSETRON 4 MG INJ IV PRN ×3 (01:00→05:00)
[2018-07-27] MEDS ORDERED: DIPHENHYDRAMINE 50 MG INJ IV PRN (01:00)
[2018-07-27] MEDS ORDERED: NALBUPHINE HCL (10 MG/1 ML) INJ IV PRN (01:00)
[2018-07-27] MEDS ORDERED: NALOXONE (0.4 MG/ML) INJ IV PRN (01:00)
[2018-07-27] MEDS ORDERED: HYDROmorphONE 0.5 MG/0.5 ML SYG IV PRN ×2 (01:00)
[2018-07-27] MEDS ORDERED: SUGAMMADEX SODIUM 200 MG/2 ML VIAL IV ONE ×2 (01:18→01:21)
--- NOTE | 2018-07-27 01:47 | PAC ---
Date/Time of Note Date/Time of Note DATE: 07/27/18 TIME: 01:45 Post-Anesthesia Notes Post-Anesthesia Note Last documented vital signs Vital Signs Date Temp Pulse Resp B/P (MAP) Pulse Ox O2 O2 Flow FiO2 Time Delivery Rate 07/27/18 98.2 77 18 134/76 100 Mask 8.0 01:39 (95) Activity: WNL Respiratory function: WNL Cardiovascular function: WNL Mental status: Baseline Pain reasonably controlled: Yes Hydration appropriate: Yes Nausea/Vomiting absent: Yes Comments BP: 127/76 HR: 67 RR: 15 T: 98.5 SaO2: 100% RAOUL HOPKINS MD Jul 27, 2018 01:47
[2018-07-27] MEDS ORDERED: MIDAZOLAM 1 MG/ML 2 ML INJ ONE (01:51)
[2018-07-27] MEDS ORDERED: MIDAZOLAM 1 MG/ML 2 ML INJ IV PRN (02:00)
--- NOTE | 2018-07-27 03:22 | SIPON ---
Date/Time of Note Date/Time of Note DATE: 07/27/18 TIME: 03:19 Operative Report Preoperative Diagnosis 11 cm adnexal mass suspected for possible ovarian torsion versus hemorrhagic cyst Postoperative Diagnosis left pedunculated solid ovarian tumor torsed on its stock several times Operation/Procedure Performed Exploratory laparotomy; collection of peritoneal fluid for cytology; Detorsion of left pedunculated solid ovarian tumor Removal of left pedunculated solid ovarian tumor measuring 11 cm Surgeon see signature line assistant Dr. Britt Anesthesia: general, spinal Estimated blood loss: 0 - 10 ml's Transfusion Required none Specimen Peritoneal fluid for cytology left solid ovarian tumor measuring 11 cm Grafts/Implants none Complications none PROSPER PANIAGUA MD Jul 27, 2018 03:22
--- NOTE | 2018-07-27 03:24 | OPR ---
Date/Time of Note Date/Time of Note DATE: 07/27/18 TIME: 03:24 Operative Report Preoperative Diagnosis 11 cm adnexal mass suspected for possible ovarian torsion versus hemorrhagic cyst Postoperative Diagnosis left pedunculated solid ovarian tumor torsed on its stock several times Operation/Procedure Performed Exploratory laparotomy; collection of peritoneal fluid for cytology; Detorsion of left pedunculated solid ovarian tumor Removal of left pedunculated solid ovarian tumor measuring 11 cm Surgeon see signature line Video Poker Floorman Dr. Britt Anesthesia Type: general, spinal Anesthesiologist: RAOUL HOPKINS MD Estimated Blood Loss: 0 - 10 ml's Transfusion none Specimen Peritoneal fluid for cytology left solid ovarian tumor measuring 11 cm Grafts/Implants none Complications none Pt Condition Post Procedure: stable Disposition: PACU Procedure Description Patient was taken to the operating room and after adequate amount of anesthesia with given patient was prepped and draped in a normal sterile fashion. A Pfannenstiel skin incision was made and the incision was carried through the underlying layer of facia. Facia was incised in the midline and extended bilaterally using the Bovie. Peritoneum with identified and entered sharply using Oliverio scissors. Peritoneum incision was extended bilaterally manually. Upon evaluation of the pelvic cavity a large pedunculated left adnexal mass was noted. This mass was solid and it was torsed around its stalk several times. First peritoneal fluid was collected and sent for cytology evaluation Then the solid mass was de-torsed; then two Gisella clamps were applied at its base. Using 0-Vicryl suture the base was suture ligated twice and then the mass was dissected off sharply using Osborn scissors. The pedicle was hemostatic. The left ovary and fallopian tube grossly appeared normal. The right adnexal was inspected and the right ovary and fallopian tube appeared normal. The uterus appeared normal. Excellent hemostasis was confirmed. At this point the peritoneal closure was proceeded with 2-0 Vicryl suture in a running fashion. Facia closure was proceeded with 0- Vicryl suture in a running fashion in two separate segments. Subcutaneous layer was closed with 3-0 plain suture in a running fashion. Skin was close with End-sorb rajani. All sponge, laps and needle counts were correct. Patient was taken to the recovery room in a stable condition. PROSPER PANIAGUA MD Jul 27, 2018 03:24
[2018-07-27] MEDS: LACTATED RINGER'S 1,000 ML IV SCH ×3 (03:52→18:57)
[2018-07-27] MEDS ORDERED: PHENYLephrine (100 MCG/ML) 5ML SYG ONE (07:00)
[2018-07-27] MEDS ORDERED: EPHEDrine SULFATE 50 MG/5 ML SYG ONE (07:00)
[2018-07-27] MEDS ORDERED: CLINDAMYCIN 900 MG INJ IV SCH (09:00)
[2018-07-27] MEDS ORDERED: OXYCODONE/ACETAMINOPHEN (5/325) TAB PO PRN (09:46)
[2018-07-27] MEDS: CLINDAMYCIN 900 MG/D5W (PMX) 50 ML IVPB SCH ×2 (10:59→18:57)
[2018-07-27] MEDS: OXYCODONE/ACETAMINOPHEN (5/325) TAB PO PRN ×2 (11:12→21:03)
--- NOTE | 2018-07-27 12:26 | PN ---
Date/Time of Note Date/Time of Note DATE: 07/27/18 TIME: 12:25 Assessment/Plan Lines/Catheters IV Catheter Type (from Nrsg): Peripheral IV Rudolph in Place (from Nrs): Yes Assessment/Plan Assessment/Plan Postop day #1 Status post Exploratory laparotomy; collection of peritoneal fluid for cytology; Detorsion of left pedunculated solid ovarian tumor Removal of left pedunculated solid ovarian tumor measuring 11 cm Plan to DC Rudolph and remove dressing at 6 PM today Advance diet as tolerated Encouraged to ambulate Continue with pain meds p.o. Will change to oral abx tomorrow Subjective 24 Hr Interval Summary Postop day #1 Status post Exploratory laparotomy; collection of peritoneal fluid for cytology; Detorsion of left pedunculated solid ovarian tumor Removal of left pedunculated solid ovarian tumor measuring 11 cm Exam/Review of Systems Vital Signs Vitals Vital Signs Date Temp Pulse Resp B/P (MAP) Pulse Ox O2 O2 Flow FiO2 Time Delivery Rate 07/28/18 98.6 64 18 115/81 97 08:00 (92) 07/27/18 Room Air 11:00 07/27/18 2.0 01:59 Intake and Output 07/27/18 07/27/18 07/28/18 1515:00 23:00 07:00 IntakeIntake Total 1690 ml 2480 ml 1450 ml OutputOutput Total 1850 ml 2500 ml 300 ml BalanceBalance -160 ml -20 ml 1150 ml Exam Free Text/Dictation Patient complaining of incisional pain and nausea Constitutional: alert, oriented, well developed Psych: no complaints, nl mood/affect Head: normocephalic, atraumatic Eyes: nl conjunctiva, EOMI, nl lids, nl sclera ENMT: nl external ears & nose, nl lips & teeth, nl nasal mucosa & septum, mucosa pink and moist Neck: supple, non-tender Respiratory: clear to auscultation, normal air movement Cardiovascular: regular rate and rhythm, nl pulses Gastrointestinal: soft, nl liver, spleen, non-tender Musculoskeletal: nl extremities to inspection, nl gait and stance Extremities: normal pulses Neurological: MANUFACTURER AGENT II-XII intact, nl mental status, nl speech, nl strength Skin: nl turgor, rash or lesions Lymph: nl lymph nodes Additional Comments Dressing clean dry and intact Results Result Diagram: 07/27/18 0427 07/27/18 0427 PROSPER PANIAGUA MD Jul 27, 2018 12:26
[2018-07-27] MEDS: ENOXAPARIN 40 MG/0.4 ML SYG SC SCH (15:34)
[2018-07-27] MEDS: IBUPROFEN 600 MG TAB PO PRN (17:04)
[2018-07-28] MEDS: CLINDAMYCIN 900 MG/D5W (PMX) 50 ML IVPB SCH (00:51)
[2018-07-28] MEDS ORDERED: morphine 4 MG/ML VIAL IV PRN (01:00)
[2018-07-28] MEDS ORDERED: OXYCODONE/ACETAMINOPHEN (5/325) TAB PO PRN ×2 (01:00)
[2018-07-28 02:00] VITALS: BP 112/65; PULSE 58; RESP 18
[2018-07-28] MEDS: LACTATED RINGER'S 1,000 ML IV SCH ×4 (03:00→22:01)
[2018-07-28] MEDS: OXYCODONE/ACETAMINOPHEN (5/325) TAB PO PRN ×4 (06:54→22:34)
[2018-07-28 08:00] VITALS: BP 115/81; PULSE 64; RESP 18
[2018-07-28] MEDS ORDERED: CEPHALEXIN 500 MG CAP PO SCH (09:00)
[2018-07-28] MEDS ORDERED: metroNIDAZOLE 500 MG TAB PO SCH (09:00)
[2018-07-28] MEDS ORDERED: INFLUENZA VIRUS VACCINE 0.5 ML (DISPENSING) IM* ONE (10:00)
[2018-07-28] MEDS: IBUPROFEN 600 MG TAB PO PRN (11:12)
--- NOTE | 2018-07-28 12:52 | QN ---
Documentation Comment POD #1s/p ex-lap for a large left 11 cm torsion of a solid ovarian mass 07/27. Pt is s/p 10 days ago and had this 11 cm mass known during the . Pt is reporting inadequate pain management but, per the record, she last received Percocet 12 hours ago and Motrin was 600 q 6 hours prn only, not round the clock. Tried to get up to ambulate but had too much pain to do so. T=98.7 BP 141/80. Abdomen soft, non-distended. Incision is clean, dry and intact. Ext Non-tender, no edema. P: Will order a CBC for the AM. Changed to Motrin to 800 mg q 6 hours around the clock and told the nurse to give her pain meds now. Changed the Percocet timing to q 4 hours prn. Enouraged even dangling her feet over the edge of the bed or out of bed to chair. Pt has been pumping her breast milk and tossing it. Her family brought her breast pump in. Pt recieved Clindamycin for the immediate post-up period but I d/c'ed the oral Flagyl and Keflex written to encourage her to send the milk home for the baby. OSWALDO MONTOYA MD Jul 28, 2018 12:52
[2018-07-28] MEDS: IBUPROFEN 800 MG TAB PO SCH ×2 (13:30→18:42)
[2018-07-28 14:00] VITALS: BP 110/77; PULSE 58; RESP 18
[2018-07-28] MEDS: ENOXAPARIN 40 MG/0.4 ML SYG SC SCH (14:17)
[2018-07-28 21:12] VITALS: BP 135/61; PULSE 54; RESP 18
--- NOTE | 2018-07-28 21:51 | QN ---
Documentation Comment Microbiology URINE CULTURE Final Organism 1 ENTEROCOCCUS SPECIES COLONY COUNT >100,000 CFU/ml SERGIO RUSSO M.I.C. RX --------- --- AMPICILLIN <=2 S CIPROFLOXACIN <=0.5 S LEVOFLOXACIN 0.5 S NITROFURANTOIN <=16 S PENICILLIN-G 4 S VANCOMYCIN 1 S Name: DANIAL CARRENO Age/Sex: 28/F Attend Dr: PROSPER PANIAGUA MD Acct: [id number] MR# : [id number] : 1990 Location: [place] Admit: 07/27/18 Specimen: [id number] Status: Resulted Gaye: 07/26/18 Rcvd: 07/26/18 Source: VAGINAL Sp Descrip: Procedure Result Microbiology GRAM STAIN Final EPITHELIAL CELLS 1+ GRAM POSITIVE RODS 1+ GRAM NEGATIVE RODS 1+ GENITAL CULTURE Preliminary Organism 1 GRAM NEGATIVE ALFREDO QUANTITY 1+ Patient needs to be on Keflex and Flagyl for one week. PROSPER PANIAGUA MD Jul 28, 2018 21:51
[2018-07-28] MEDS: metroNIDAZOLE 500 MG TAB PO SCH (22:29)
[2018-07-28] MEDS: CEPHALEXIN 500 MG CAP PO SCH (22:30)
[2018-07-29] MEDS: IBUPROFEN 800 MG TAB PO SCH ×4 (00:39→20:02)
[2018-07-29 02:31] VITALS: BP 124/71; PULSE 53; RESP 18
[2018-07-29] MEDS: OXYCODONE/ACETAMINOPHEN (5/325) TAB PO PRN ×2 (05:34→16:24)
[2018-07-29] MEDS: LACTATED RINGER'S 1,000 ML IV SCH ×2 (06:11→16:20)
[2018-07-29 07:44] VITALS: BP 118/77; PULSE 45; RESP 18
[2018-07-29] MEDS: CEPHALEXIN 500 MG CAP PO SCH ×2 (09:38→20:59)
[2018-07-29] MEDS: metroNIDAZOLE 500 MG TAB PO SCH ×2 (09:38→20:59)
[2018-07-29 14:41] VITALS: BP 126/69; PULSE 66; RESP 18
--- NOTE | 2018-07-29 19:30 | QN ---
Documentation Comment patient was seen and evaluated no complaints vs stable afebrile ab c/d/i no distention extremity no edema no calf tenderness a/ sp exlap with ovarian tumor removal pod 2 stable afebrile stable afebrile p/ encourage ambulation pain management CHAVEZ HOBSON MD Jul 29, 2018 19:30
--- NOTE | 2018-07-29 19:32 | QN ---
Documentation Comment patient currently on keflex for uti CHAVEZ HOBSON MD Jul 29, 2018 19:32
[2018-07-29 20:30] VITALS: BP_SYST 12; BP_SYST 120; BP_DIAS 69; PULSE 66; RESP 19
[2018-07-30] MEDS: LACTATED RINGER'S 1,000 ML IV SCH ×3 (01:00→18:54)
[2018-07-30] MEDS: IBUPROFEN 800 MG TAB PO SCH ×4 (02:21→19:59)
[2018-07-30 02:31] VITALS: BP 124/58; PULSE 52; RESP 17
[2018-07-30 07:49] VITALS: BP 136/79; PULSE 52; RESP 16
[2018-07-30] MEDS: metroNIDAZOLE 500 MG TAB PO SCH ×2 (08:55→19:59)
[2018-07-30] MEDS: CEPHALEXIN 500 MG CAP PO SCH ×2 (08:55→19:59)
[2018-07-30] MEDS: OXYCODONE/ACETAMINOPHEN (5/325) TAB PO PRN (13:20)
--- NOTE | 2018-07-30 19:39 | PD.PPDC ---
PIE ICER MACHINE Discharge Instruction Condition [id number] Patient Condition: Ziose3p Fair Diet [id number] Diet: Frcnf8i Resume Regular Diet Activity/Restrictions Nrehc7Rc Activity: Dsrmi6y Normal Activity May Shower [id number] Restrictions: Ikgwg6r No Exercising No Lifting No Driving No Sexual Activity Nothing in the Vagina No [place] No Tampons, douche Follow-up Follow-up with Physician: 1, Week/Weeks Provider Information: Dr. Tanner Return to clinic for Odbnt7Rc INCINERATOR ATTENDANT Instructions: Fprsy2l Fever greater than 101 Chills Worsening abdominal pain Excessive Vaginal Bleeding More than 2 pads per hour Unable to tolerate diet Paoav6Nh OB Instructions: Lznkt3n Breast Tenderness Depression Blurried Vision Headache Aneic0Cx Surgical Instructions: Xyrrh9e Incisional Drainage Incisional Redness CHAVEZ HOBSON MD Jul 30, 2018 19:39
[2018-07-30 20:04] VITALS: BP 159/77; PULSE 66; RESP 20
--- NOTE | 2018-07-30 22:24 | DS ---
DATE OF ADMISSION: 07/27/2018 DATE OF DISCHARGE: 07/30/2018 PRIMARY DIAGNOSIS: An 11 cm adnexal mass, suspected for possible ovarian torsion versus hemorrhagic cyst. POSTOPERATIVE DIAGNOSIS: Left pedunculated solid ovarian tumor, torsed on its stalk several times. PROCEDURE: Exploratory laparotomy, collection of peritoneal fluid for cytology, detorsion of left pe dunculated solid ovarian tumor, removal of the left pedunculated solid ovarian tumor measuring 11 cm. CONDITION ON DISCHARGE: Stable. ACTIVITY: None per vagina, no lifting x6 weeks. DIET: Regular. MEDICATIONS ON DISCHARGE: Motrin 800 mg p.o. q.8h. p.r.n. pain, #40. DISCHARGE SUMMARY: Ms. Brisa Medellin underwent exploratory laparotomy with removal of left pedunc ulated solid ovarian tumor. She had an uneventful postop day 1, 2, and 3. Her incision is clean, dr y, and intact. She is ambulating, tolerating diet, positive flatulence, positive bowel movement. e will follow up with Dr. Tanner in 1 week for postoperative care. Pathology is currently pending . Dictated By: CHAVEZ CARPENTER/SARA Conf#: [id number] DID#: [id number]
== END 2018-07-30 21:10 | disposition home or self-care (01) | DRG 737 ==
LOC: FTE 16:10 → MS1 23:13 → SDS 23:23 → MS1 07-27 02:16
PROVIDERS: ADMIT Obstetrics & Gynecology Gynecology; ATTEND Obstetrics & Gynecology
PROC: 0UB10ZZ Excision of Left Ovary, Open Approach (ICD-10-PCS; principal; 2018-07-27)
PROC: 0D9W0ZX Drainage of Peritoneum, Open Approach, Diagnostic (ICD-10-PCS; 2018-07-27)
DX: D39.12 Neoplasm of uncertain behavior of left ovary (principal); N83.512 Torsion of left ovary and ovarian pedicle; Z68.41 Body mass index [BMI] 40.0-44.9, adult; N39.0 Urinary tract infection, site not specified; E66.01 Morbid (severe) obesity due to excess calories; G89.18 Other acute postprocedural pain; N89.8 Other specified noninflammatory disorders of vagina
CPT/HCPCS: 36415; 71045; 74176; 76856; 80048; 80053; 81001; 83605; 83690; 85025; 85610; 85730; 87081; 87086; 88104; 88107; 88305; 90686; 93005; 96374; 96375; J1100; J1170; J1200; J1580; J1650; J1885; J2250; J2270; J2274; J2370; J2405; J7030; J7120